=== PATIENT | male | born 1950 | race Caucasian/White ===

== ENCOUNTER 2021-05-06 06:57 | Day surgery (SDC) | payer OTHER ==
[~2021-05-06] VITALS: Ht 182.9 cm; Wt 117.0 kg
[~2021-05-06 06:57] MED LIST: APIX5TAB PO; ATOR20TA50 PO; CARV25TA55 PO; LOSA100T33 PO; MELA5TAB8 PO; MELO1TAB73 PO; TRAZ50TA2 PO; [UNRECOGNIZED DRUG - CODE] PO
[2021-05-06] MEDS ORDERED: IOHEXOL 350 MG/ML 100ML IJ ONE (08:18)
[2021-05-06] MEDS ORDERED: LIDOCAINE 2%HCL (LOCAL ANESTH.) INJ 20ML MDV ONE (08:18)
[2021-05-06] MEDS ORDERED: NITROGLYCERIN 5MG/ML 10ML VIAL IV ONE (08:40)
[2021-05-06] MEDS ORDERED: ANGIOMAX 250 MG VIAL IV ONE (08:40)
[2021-05-06] MEDS ORDERED: fentaNYL CITRATE 100 MCG/2 ML VL ONE (08:40)
[2021-05-06] MEDS ORDERED: HEPARIN SODIUM (PORCINE) 5000 UNITS/ML 1ML VIAL ONE (08:40)
[2021-05-06] MEDS ORDERED: MIDAZOLAM HCL 1MG/1ML-2 ML VIAL ONE (08:40)
[2021-05-06] MEDS ORDERED: VERAPAMIL 2.5MG/ML INJ 2ML VIAL IV ONE (08:40)
[2021-05-06] MEDS ORDERED: SODIUM CHL 0.9% 0 ML ONE (08:41)
[2021-05-06] MEDS ORDERED: IODIXANOL 320MG/ML 100ML BTL IV ONE (08:55)
[2021-05-06] MEDS ORDERED: ONDANSETRON HCL 4 MG/2 ML VIAL IV PRN (09:30)
[2021-05-06] MEDS ORDERED: ACETAMINOPHEN 500 MG TAB PO PRN (09:30)
== END 2021-05-06 11:30 | disposition home or self-care (01) ==
LOC: CATH 06:57
PROVIDERS: ATTEND Internal Medicine
DX: R94.39 Abnormal result of other cardiovascular function study (principal); I25.118 Atherosclerotic heart disease of native coronary artery with other forms of angina pectoris; I10 Essential (primary) hypertension; Z87.891 Personal history of nicotine dependence; Z79.899 Other long term (current) drug therapy; Z20.822 Contact with and (suspected) exposure to COVID-19; Z68.35 Body mass index [BMI] 35.0-35.9, adult
CPT/HCPCS: 93454; C1769; C1887; C1894; J1644; J2250; J3010; J7030; Q9967; U0003; 99152; J3490

== ENCOUNTER 2024-08-29 07:08 | Inpatient (IN) | payer OTHER ==
[~2024-08-29] VITALS: Ht 182.9 cm; Wt 106.0 kg
[~2024-08-29 07:08] MED LIST changes: +ALBU108A5 IN; +ALBU1NEB5 IN; -ATOR20TA50 PO; +BUDE1AER6 INH; +BUSP15TA60 PO; +DAPA1TAB4 PO; +FURO20TA4 PO; +IPR002IS HHN; +LOSA-535 PO; -LOSA100T33 PO; -MELA5TAB8 PO; -MELO1TAB73 PO; +POTA-36 PO; +TRAZ-184 PO; -TRAZ50TA2 PO; -[UNRECOGNIZED DRUG - CODE] PO
[2024-08-29] MEDS: CEFEPIME 1GM/ 50ML 50 ML IV ONE (08:00)
[2024-08-29] MEDS: ACETAMINOPHEN IV 1000 MG/100ML (10MG/ML) IV ONE (08:00)
[2024-08-29] MEDS: PREGABALIN CAPSULE 75 MG CAP PO ONE (08:00)
[2024-08-29] MEDS: CELECOXIB 100 MG CAP PO ONE (08:00)
[2024-08-29] MEDS ORDERED: NITROGLYCERIN 0.4 MG SL TAB SL PRN (09:15)
[2024-08-29] MEDS ORDERED: MORPHINE SULFATE INJ 2 MG/ml SYRG IV PRN (09:15)
[2024-08-29] MEDS ORDERED: MORPHINE SULF PF 5 MG/10 ML VIAL ONE (09:19)
[2024-08-29] MEDS ORDERED: KETOROLAC TROMETH 30 MG/ML 1ML VIAL ONE (09:19)
[2024-08-29] MEDS: EPINEPHrine HCL 1 MG/1 ML AMP ONE (09:36)
[2024-08-29] MEDS: VANCOMYCIN HCL 1000 MG VL ONE (09:36)
[2024-08-29] MEDS: BUPIVACAINE 0.25% INJ 50ML VIAL ONE (09:36)
[2024-08-29] MEDS: FUROSEMIDE 20 MG/2 ML VIAL ONE (09:37)
[2024-08-29] MEDS ORDERED: PATIENTS OWN MEDICATION (Buspirone Hcl 30 MG) PO SCH (10:00)
[2024-08-29] MEDS ORDERED: ENOXAPARIN SOD 100 MG/1 ML SYRINGE SC SCH (10:00)
[2024-08-29] MEDS ORDERED: PATIENTS OWN MEDICATION (Carvedilol 1 TAB) PO SCH (10:00)
[2024-08-29] MEDS ORDERED: PATIENTS OWN MEDICATION (Potassium Chloride (Potassium Chloride Cr) 20 MEQ) PO SCH (10:00)
[2024-08-29] MEDS ORDERED: PATIENTS OWN MEDICATION (Losartan Potassium 100 MG) PO SCH (10:00)
--- NOTE | 2024-08-29 12:07 | DVHINCON2 ---
Date of service: Aug 29, 2024 History of Present Illness 74 yo sick office pt of mine hx of NICM with EF 35-40% (between 35 and 45 on recent imaging), mod severe MR, TR, pulm htn, chronic afib on doac here for nathalie ctive shoulder surgery. surgery cancelled / to afib rvr and sob. Past Medical History reviewed Family History: Cardiovascular disease G8 MOTHER G8 FATHER Allergies: Coded Allergies: NO KNOWN ALLERGIES (Unverified , 05/03/21) Home Meds Active Scripts Ipratropium [place] (Ipratropium [place]) 0.02 % [place], 0.5 % HHN Q6HP PRN for 60 Days, #1200 ML Prov:JUAN RODRIGUEZ MD 02/08/24 Albuterol Sulfate (Albuterol Sulfate (5 mg/ml) 0.5%) 1 Neb Neb, 1 NEB IN Q6HP PRN for 60 Days, #1200 INH Prov:JUAN RODRIGUEZ MD 02/08/24 Reported Medications Potassium Chloride (POTASSIUM CHLORIDE CR) 10 Meq Tb, 20 MEQ PO DAILY, TAB 02/05/24 Trazodone HCl (Trazodone Hydrocloride) 100 Mg Tab, 200 MG PO HS 02/04/24 Buspirone Hcl (Buspirone Hcl) 15 Mg Tab, 30 MG PO DAILY for 30 Days 02/04/24 Losartan Potassium (Losartan Potassium) 100 Mg Tab, 100 MG PO DAILY for 30 Days, MG 02/04/24 Spqscvtxwq-Mzerkpychfmdej-Muqg (Breztri Aerosphere 160-9-4.8 Mcg/Act) 1 Aer Aer, 2 PUFF INH BID 01/12/24 Furosemide (Furosemide) 20 Mg Tab, 1 TAB PO QAM 01/12/24 Carvedilol (Carvedilol) 25 Mg Tab, 1 TAB PO Q12HR for HYPERTENSION 05/03/21 Apixaban Base (ELIQUIS) 5 Mg Tab, 5 MG PO BID for ATRIAL FIB. 05/03/21 Current Medications Current Medications Medications (Trade) Dose Ordered Sig/Anai Route PRN Reason Start Time Stop Time Status Last Admin Nitroglycerin (Ntrostat Sublingual) 0.4 mg Q5MINP PRN SL FOR CHEST PAIN 08/29/24 09:15 Morphine Sulfate 2 mg Q30M PRN IV FOR CHEST PAIN 08/29/24 09:15 Enoxaparin Sodium (Lovenox) 100 mg Q12HR SC 08/29/24 10:00 Furosemide (Lasix Tablet) 20 mg QAM PO 08/30/24 07:00 08/29/24 09:26 DC Patient Own Medication 30 mg DAILY PO 08/29/24 10:00 UNV Patient Own Medication 1 tab Q12HR PO 08/29/24 10:00 UNV Patient Own Medication 100 mg DAILY PO 08/29/24 10:00 UNV Patient Own Medication 20 meq DAILY PO 08/29/24 10:00 UNV Patient Own Medication 200 mg HS PO 08/29/24 22:00 UNV Furosemide (Lasix Injection) 40 mg BIDD IV 08/29/24 18:00 Buspirone HCl (Buspar Tablet) 30 mg DAILY PO 08/30/24 10:00 Losartan Potassium (Cozaar Tablet) 100 mg DAILY PO 08/30/24 10:00 Potassium Chloride (Klor-Con Tablet) 20 meq DAILY PO 08/30/24 10:00 Trazodone HCl (Desyrel) 200 mg HS PO 08/29/24 22:00 Carvedilol (Coreg Tablet) 25 mg BID PO 08/29/24 22:00 Review of Systems 10 pt ros otherwise negative Vital Signs Vital Signs Date Time Temp Pulse Resp B/P (MAP) Pulse Ox O2 Delivery O2 Flow Rate FiO2 08/29/24 09:37 168/128 08/29/24 08:05 98.5 130 22 96 98.5 Physical Exam nad YOLI EOMI s1 s2 irregular diffuse rhonchi abd soft nt/nd trivail edema Assessment acute on chronic systolic and diastolic HF NYHA class III ckd afib rvr pulm edema chronic pulm htn preop ortho surgery Plan/Recommendation iv lasix check ecg iv digoxin today po amiodarone diurese patient negativef [facility] 2023 once more stable hemodynamically plan for ortho surgery check bnp Plan discussed with: Patient TARAN GREEN MD Aug 29, 2024 12:07
[2024-08-29] MEDS: DIGOXIN (250MCG/ML) 2 ML AMPULE IV ONE (12:15)
[2024-08-29] MEDS: AMIODARONE HCL 200 MG TAB PO SCH (12:15)
--- NOTE | 2024-08-29 14:38 | DVHHP2 ---
History of Present Illness Reason for Visit: shoulder surgery History of Present Illness Disease 74-year-old gentleman with coronary artery disease with AICD came to the hospital for elective shoulder surgery. Operatively in the operating room patient noted to be in atrial fibrillation with rapid ventricular response. Therefore surgery was canceled and is being admitted to the hospital for cardiac evaluation and further management. At present patient denies any chest pain or shortness of breath. Denies any palpitations. Other review of systems reviewed normal. Past Medical History Cardiomyopathy with ejection fraction about 35%. Coronary artery disease cardiovascular disease. Chronic atrial fibrillation. Pulmonary hypertension Past Surgical History Pacemaker/AICD placement Family History: CAD, Hyperlipidemia, Hypertension Smoke: No ALCOHOL: rare Lives: with Family Review of Systems Review of Systems No complaints chest pain shortness of breath or palpitations. No fevers chills or sweats. Patient says he is constipated. Other review of systems reviewed normal. Allergies: Coded Allergies: NO KNOWN ALLERGIES (Unverified , 05/03/21) Medications Current Medications Medications Dose Ordered Sig/Anai Route Start Time Stop Time Status Last Admin Dose Admin Nitroglycerin 0.4 mg Q5MINP PRN SL 08/29/24 09:15 Morphine Sulfate 2 mg Q30M PRN IV 08/29/24 09:15 Enoxaparin Sodium 100 mg Q12HR SC 08/29/24 10:00 Patient Own Medication 30 mg DAILY PO 08/29/24 10:00 UNV Patient Own Medication 1 tab Q12HR PO 08/29/24 10:00 UNV Patient Own Medication 100 mg DAILY PO 08/29/24 10:00 UNV Patient Own Medication 20 meq DAILY PO 08/29/24 10:00 UNV Patient Own Medication 200 mg HS PO 08/29/24 22:00 UNV Buspirone HCl 30 mg DAILY PO 08/30/24 10:00 Losartan Potassium 100 mg DAILY PO 08/30/24 10:00 Potassium Chloride 20 meq DAILY PO 08/30/24 10:00 Trazodone HCl 200 mg HS PO 08/29/24 22:00 Carvedilol 25 mg BID PO 08/29/24 22:00 Furosemide 40 mg BIDD IV 08/29/24 18:00 Amiodarone HCl 400 mg Q12HR PO 08/29/24 12:15 Exam Vital Signs Vital Signs Date Time Temp Pulse Resp B/P (MAP) Pulse Ox O2 Delivery O2 Flow Rate FiO2 08/29/24 09:37 168/128 08/29/24 08:05 98.5 130 22 96 98.5 Exam He is sitting at the edge of the bed and atovaquone x3. No complaints. HEENT neck supple no rigidity was equal round react light. Heart regular rate and rhythm S1-S2 no audible murmurs. Lungs fair air movement throughout the lung zones. Chest equal expansion. Abdomen is obese soft nontender positive bowel sounds. Extremities no edema positive distal pulses. Assessment/Plan Assessment/Plan Who will admit him to telemetry floor. All resume his Coreg and amiodarone for heart rate control. We will continue to hold anticoagulation for anticipated shoulder surgery however risks of embolic stroke he has discussed with the patient well off the anticoagulation. We will have cardiac consultation with his tool designer apprentice. Otherwise resume rest of his home medications. I will order CT of the abdomen and pelvis given his abdominal bloating distention and constipation. Otherwise continue in his nasal breathing treatment. Clear liquid diet. Further clinical management for clinical course and recomme ndations from the consultants. Discussed with the nurse and the patient regarding care plan. Plan discussed with: Patient, Other My Orders Orders - KENNETH REES MD Procedure Category Date Status Time Admit ADMIT 08/29/24 Transmitted 09:09 Oxygen By Nasal RT 08/29/24 Transmitted Cannula 09:09 Nitroglycerin [facility] 08/29/24 In Process Sublingual (Ntrostat 09:15 Morphine Sulfate [facility] 08/29/24 In Process Injection 09:15 Stat Ekg For Chest [facility] 08/29/24 In Process Pain 09:09 Notify Of Changes [facility] 08/29/24 In Process From Base 09:09 Infantry Officer For [facility] 08/29/24 In Process 24 Hours 09:09 Emergency Dysrhythmia [facility] 08/29/24 In Process Protocol 09:09 Rhythm Strips Once [facility] 08/29/24 In Process Every Shift 09:09 * Cardiology Consult CONS 08/29/24 Transmitted 09:09 Enoxaparin Sodium PH[facility] 08/29/24 In Process (Lovenox) 10:00 Cardiac DIET 08/29/24 Transmitted Diet-2gna,Lofat,Lochol Lunch Buspirone Hcl Tablet PHA 08/30/24 In Process (Buspar Tablet) 10:00 Losartan Tablet PHA 08/30/24 In Process (Cozaar Tablet) 10:00 Potassium Er Tablet PHA 08/30/24 In Process (Klor-Con Tablet) 10:00 Trazodone Hcl PHA 08/29/24 In Process (Desyrel) 22:00 Carvedilol Tablet PHA 08/29/24 In Process (Coreg Tablet) 22:00 Problem List: (1) Atrial fibrillation (2) Generalized weakness (3) Acute on chronic diastolic heart failure KENNETH REES MD Aug 29, 2024 14:38
[2024-08-29 15:37] LABS: Basophils # (auto) 0 10 ^3/uL (0-0.2); Basophils % (auto) 0.7 % (0.0-2.0); Eosinophils # (auto) 0.1 10 ^3/uL (0-0.8); Hematocrit 47.2 % (41.0-53.0); Lymphocytes # (auto) 1.3 10 ^3/uL (0.4-5.4); Lymphocytes % (auto) 18.9 % (10.0-50.0); Mean Corpuscular Hemoglobin 31.8 pg (28.0-32.0); Mean Corpuscular Hgb Conc. 33.9 g/dL (32.0-36.0); Mean Corpuscular Volume 93.7 fL (80.0-100.0); Monocytes # (auto) 0.7 10 ^3/uL (0-1.3); Monocytes % (auto) 11.2 % (0.0-12.0); Neutrophils # (auto) 4.5 10 ^3/uL (1.6-8.6); Neutrophils % (auto) 67.2 % (37.0-80.0); Platelet Count (auto) 143 10^3/uL (140-450); Red Blood Cells 5.04 10^6/uL (4.5-5.90); Red Cell Distribution Width 16.1 % (11.8-14.3); White Blood Cell 6.7 10^3/uL (4.4-10.8)
[2024-08-29 16:04] LABS: Alanine Aminotransferase 20 U/L (7-40); Alkaline Phosphatase 116 U/L (46-116); Anion Gap 3 (5-15); Aspartate Aminotransferase 17 U/L (13-40); BUN/Creatinine Ratio 13.3 (10.0-20.0); Blood Urea Nitrogen 11 mg/dL (9-23); Calcium 9.8 mg/dL (8.7-10.4); Carbon Dioxide 30 mmol/L (20-31); Chloride 108 mmol/L (98-107); Glucose 103 mg/dL (74-106); Potassium 4.1 mmol/L (3.5-5.1); Sodium 141 mmol/L (136-145)
[2024-08-29 16:05] LABS: Bilirubin, Total 1.3 mg/dL (0.2-1.0); Total Protein 6.4 g/dL (5.7-8.2)
[2024-08-29 16:19] LABS: INR 1.13 (0.9-1.15); Partial Thromboplastin Time 28.5 SEC (24.5-34.5); Prothrombin Time 11.9 sec (9.3-11.8)
[2024-08-29] MEDS ORDERED: TADA5TAB16 PO (16:22)
[2024-08-29] MEDS: FUROSEMIDE 40 MG/4 ML VIAL IV SCH (16:58)
[2024-08-29] MEDS: CARVEDILOL 12.5 MG TAB PO SCH (16:58)
[2024-08-29 17:08] VITALS: BP 167/107; PULSE 111; RESP 15; TEMP 97.9; O2SAT 94
[2024-08-29] MEDS ORDERED: FUROSEMIDE 40 MG/4 ML VIAL IV SCH (18:00)
[2024-08-29] MEDS: MAGNESIUM SULFATE 1GM/100ML 100 ML IV SCH (18:02)
[2024-08-29 20:00] VITALS: PULSE 104; PULSE 92; RESP 20; O2SAT 94
[2024-08-29] MEDS: LORazepam 2MG/ML-1ML VIAL IV PRN (20:40)
[2024-08-29 21:00] VITALS: BP 138/89; PULSE 92; RESP 20; TEMP 98; O2SAT 94
[2024-08-29] MEDS ORDERED: TRAZODONE HCL 200 MG PO SCH (22:00)
[2024-08-29] MEDS: traZODone HCL 50 MG TAB PO SCH (22:25)
[2024-08-30] VITALS (7 sets, daily range): BP systolic 122–162; BP diastolic 65–104; PULSE 65–87; RESP 18–20; TEMP 97.5–98.6; O2SAT 93–99
[2024-08-30] MEDS: hydrALAZINE HCL 20 MG/ML VL IV PRN (05:52)
[2024-08-30 06:05] LABS: Chloride 108 mmol/L (98-107); Potassium 3.8 mmol/L (3.5-5.1); Sodium 140 mmol/L (136-145)
[2024-08-30 06:06] LABS: Anion Gap 4 (5-15); Carbon Dioxide 28 mmol/L (20-31)
[2024-08-30 06:07] LABS: Calcium 9.4 mg/dL (8.7-10.4)
[2024-08-30 06:11] LABS: Blood Urea Nitrogen 9 mg/dL (9-23); Glucose 94 mg/dL (74-106)
[2024-08-30] MEDS ORDERED: FUROSEMIDE 20 MG TAB PO SCH (07:00)
--- NOTE | 2024-08-30 07:49 | DVHPN2 ---
Progress Note Date Seen: Aug 30, 2024 Medical Necessity Reason Pt with a Central, PICC or Fol: No Subjective Patient reports: Feels worse (patient reports he has abdominal discomfort and is now feeling very anxious and knows something is not right) Objective vital signs Vital Sign Date Time Temp Pulse Resp B/P (MAP) Pulse Ox O2 Delivery O2 Flow Rate FiO2 08/30/24 05:52 153/104 08/30/24 05:00 97.5 84 20 93 97.5 08/29/24 20:00 Room Air* 0 21 Total Intake and Output 08/29/24 08/29/24 08/30/24 15:00 23:00 07:00 Intake Total 0 ml 600 ml 640 ml Output Total 2025 ml Balance -2025 ml 600 ml 640 ml medications Current Medications Medications Dose Ordered Sig/Anai Route Start Time Stop Time Status Last Admin Dose Admin Nitroglycerin 0.4 mg Q5MINP PRN SL 08/29/24 09:15 Morphine Sulfate 2 mg Q30M PRN IV 08/29/24 09:15 Patient Own Medication 30 mg DAILY PO 08/29/24 10:00 UNV Patient Own Medication 1 tab Q12HR PO 08/29/24 10:00 UNV Patient Own Medication 100 mg DAILY PO 08/29/24 10:00 UNV Patient Own Medication 20 meq DAILY PO 08/29/24 10:00 UNV Patient Own Medication 200 mg HS PO 08/29/24 22:00 UNV Buspirone HCl 30 mg DAILY PO 08/30/24 10:00 Losartan Potassium 100 mg DAILY PO 08/30/24 10:00 Potassium Chloride 20 meq DAILY PO 08/30/24 10:00 Trazodone HCl 200 mg HS PO 08/29/24 22:00 08/29/24 22:25 200 MG Carvedilol 25 mg BID PO 08/29/24 22:00 08/29/24 16:58 25 MG Furosemide 40 mg BIDD IV 08/29/24 18:00 08/30/24 05:52 40 MG Amiodarone HCl 400 mg Q12HR PO 08/29/24 12:15 08/29/24 22:25 400 MG Hydralazine HCl 10 mg Q6HP PRN IV 08/29/24 15:15 08/30/24 05:52 10 MG Lorazepam 0.5 mg Q8HP PRN IV 08/29/24 17:30 08/30/24 07:32 0.5 MG Examination: GENERAL:Normal laboratory and microbiology Laboratory Tests 08/30/24 04:55 08/29/24 15:17 Test 08/30/24 04:55 Range/Units Serum Glucose 94 74-106 mg/dL Problem List/Assessment/Plan Problem List/Assessment/Plan 74 year old male who was scheduled for RV TSA with Dr. Faulkner that was cancelled due to cardiac symptoms 1. Pain control 2. WBAT, no physical restrictions 3. Discussion held with the patient at the bedside that once he is medically stable he can contact our office and we can begin the rescheduling process likely next week pending overall status 4. Continue with medical workup 5. Clear for discharge from orthopedic standpoint once patient is medically optimized and stable for discharge Plan discussed with: Patient Date of Service: Aug 30, 2024 Billing Provider: ROBLES FAULKNER MD Common Visit Codes: NOT BILLABLE FABIEN DHALIWAL NP Aug 30, 2024 07:49
[2024-08-30] MEDS: LOSARTAN POTASSIUM 50 MG TAB PO SCH (08:37)
[2024-08-30] MEDS: GASTROGRAFIN 30 ML SOL ONE (09:59)
--- NOTE | 2024-08-30 11:46 | DVH ---
Exam: CT CT ABD PELVIS W CON-ORAL IV History: abdominal pain/discomfort Comparison Study: TECHNIQUE: A digital lighthouse keeper image was obtained. During the uneventful, oral and intravenous administra tion of contrast material, multislice data acquisition was obtained through the abdomen and pelvis. T he data set was subsequently reconstructed into axial images. Images were reviewed on a work station using a combination of axial and multiplanar using a variety of window levels and settings. 100 cc of Omnipaque 300 contrast was injected intravenously. All CT scans at this medical facility are performed using dose modulation techniques as appropriate t o a performed exam including the following:Automated exposure control was utilized; adjustment of the MA and/or KV according to patient size; and use of iterative reconstruction technique. Radiation Dose Information: CT Dose: CTDI volume is 21 mGy. Dose-length product is 1185 mGy*cm Comparison: None FINDINGS: The bilateral adrenal glands appear thickened, [id number] likely related to h yperplasia. Theliver, gallbladder, pancreas, kidneys, and spleen appear within normal limits. There is no evidence of abdominal lymphadenopathy. There are edematous changes in the mesentery with small amount of ascites. There is no free air. The stomach grossly appears unremarkable. The small and large bowel loops demonstrate normal caliber. There are diverticula in the distal colon without evidence acute diverticulitis. There are calcified atherosclerotic changes in the abdominal aorta. The IVC appears within normal allen its. Prostate gland is enlarged. The bladder grossly appears within normal limits for the degree of disten tion. There is no evidence of a pelvic mass or lymphadenopathy. There is no free fluid collection. T here is a left inguinal hernia containing intra-abdominal fat and small amount of fluid. There is cardiomegaly with small pericardial effusion. Lung bases are clear. There is no acute osseous abnormality. There is scoliotic curvature of the thoracolumbar spine with m ultilevel spondylosis. IMPRESSION: 1. There is no acute process in the abdomen and pelvis.. 2. Cardiomegaly with small pericardial effusion. 3. Distal colon diverticulosis. 4. The bilateral adrenal glands appear thickened likely related to hyperplasia. 5. There are edematous changes in the mesentery with small amount of ascites. 6. Left inguinal hernia. HS:Y
[2024-08-30] MEDS: busPIRone HCL 10 MG TAB PO SCH (12:01)
[2024-08-30] MEDS: POTASSIUM CHL 20 Meq TABLET PO SCH (12:01)
[2024-08-30] MEDS: IOHEXOL 300 MG/ML 100ML BOTTLE IJ ONE (12:11)
--- NOTE | 2024-08-30 12:19 | DVHPN2 ---
Progress Note Date Seen: Aug 30, 2024 Medical Necessity Reason Pt with a Central, PICC or Fol: No Subjective Patient reports: Feels better Other Systems: rate controlled having runs of tachycardia diuresed well Objective vital signs Vital Sign Date Time Temp Pulse Resp B/P (MAP) Pulse Ox O2 Delivery O2 Flow Rate FiO2 08/30/24 08:38 90 175/115 08/30/24 08:36 98.0 20 99 98.0 08/29/24 20:00 Room Air* 0 21 Total Intake and Output 08/29/24 08/29/24 08/30/24 15:00 23:00 07:00 Intake Total 0 ml 600 ml 640 ml Output Total 2025 ml Balance -2025 ml 600 ml 640 ml medications Current Medications Medications Dose Ordered Sig/Anai Route Start Time Stop Time Status Last Admin Dose Admin Nitroglycerin 0.4 mg Q5MINP PRN SL 08/29/24 09:15 Morphine Sulfate 2 mg Q30M PRN IV 08/29/24 09:15 Patient Own Medication 30 mg DAILY PO 08/29/24 10:00 UNV Patient Own Medication 1 tab Q12HR PO 08/29/24 10:00 UNV Patient Own Medication 100 mg DAILY PO 08/29/24 10:00 UNV Patient Own Medication 20 meq DAILY PO 08/29/24 10:00 UNV Patient Own Medication 200 mg HS PO 08/29/24 22:00 UNV Buspirone HCl 30 mg DAILY PO 08/30/24 10:00 08/30/24 12:01 30 MG Losartan Potassium 100 mg DAILY PO 08/30/24 10:00 08/30/24 08:37 100 MG Potassium Chloride 20 meq DAILY PO 08/30/24 10:00 08/30/24 12:01 20 MEQ Trazodone HCl 200 mg HS PO 08/29/24 22:00 08/29/24 22:25 200 MG Carvedilol 25 mg BID PO 08/29/24 22:00 08/30/24 08:38 25 MG Furosemide 40 mg BIDD IV 08/29/24 18:00 08/30/24 05:52 40 MG Amiodarone HCl 400 mg Q12HR PO 08/29/24 12:15 08/30/24 08:38 400 MG Hydralazine HCl 10 mg Q6HP PRN IV 08/29/24 15:15 08/30/24 05:52 10 MG Lorazepam 0.5 mg Q8HP PRN IV 08/29/24 17:30 08/30/24 07:32 0.5 MG Examination: GENERAL:Abnormal, HEENT:Abnormal, LUNGS:Abnormal, CVS:Abnormal, ABDOMEN:Abnormal laboratory and microbiology Laboratory Tests 08/30/24 04:55 08/29/24 15:17 Test 08/30/24 04:55 Range/Units Serum Glucose 94 74-106 mg/dL Problem List/Assessment/Plan Problem List/Assessment/Plan s/p PPM severe chf with low EF mitral regurg acute on chronic systolic HF NYHA III iv lasix bid add aldactone device check/ interroage cont po amio resume doac if no ortho surgery this week Plan discussed with: Patient Date of Service: Aug 30, 2024 Billing Provider: TARAN GREEN MD Common Visit Codes: NOT BILLABLE TARAN GREEN MD Aug 30, 2024 12:19
--- NOTE | 2024-08-30 13:08 | DVHPN2 ---
Progress Note - Dictate Date Seen: Aug 30, 2024 Medical Necessity Reason Pt with a Central, PICC or Fol: No Subjective Medically stable to. Wants to eat if no surgery is being done. Patient reportedly having tachycardia on telemetry for a nurse. Evaluated by Cardiology yesterday recommend current management and pacemaker interrogation. vital signs Vital Sign Date Time Temp Pulse Resp B/P (MAP) Pulse Ox O2 Delivery O2 Flow Rate FiO2 08/30/24 09:38 94 125/71 08/30/24 08:36 98.0 20 99 98.0 08/29/24 20:00 Room Air* 0 21 Total Intake and Output 08/29/24 08/29/24 08/30/24 15:00 23:00 07:00 Intake Total 0 ml 600 ml 640 ml Output Total 2025 ml Balance -2025 ml 600 ml 640 ml medications Current Medications Medications Dose Ordered Sig/Anai Route Start Time Stop Time Status Last Admin Dose Admin Nitroglycerin 0.4 mg Q5MINP PRN SL 08/29/24 09:15 Morphine Sulfate 2 mg Q30M PRN IV 08/29/24 09:15 Patient Own Medication 30 mg DAILY PO 08/29/24 10:00 UNV Patient Own Medication 1 tab Q12HR PO 08/29/24 10:00 UNV Patient Own Medication 100 mg DAILY PO 08/29/24 10:00 UNV Patient Own Medication 20 meq DAILY PO 08/29/24 10:00 UNV Patient Own Medication 200 mg HS PO 08/29/24 22:00 UNV Buspirone HCl 30 mg DAILY PO 08/30/24 10:00 08/30/24 12:01 30 MG Losartan Potassium 100 mg DAILY PO 08/30/24 10:00 08/30/24 08:37 100 MG Potassium Chloride 20 meq DAILY PO 08/30/24 10:00 08/30/24 12:01 20 MEQ Trazodone HCl 200 mg HS PO 08/29/24 22:00 08/29/24 22:25 200 MG Carvedilol 25 mg BID PO 08/29/24 22:00 08/30/24 08:38 25 MG Furosemide 40 mg BIDD IV 08/29/24 18:00 08/30/24 05:52 40 MG Amiodarone HCl 400 mg Q12HR PO 08/29/24 12:15 08/30/24 08:38 400 MG Hydralazine HCl 10 mg Q6HP PRN IV 08/29/24 15:15 08/30/24 05:52 10 MG Lorazepam 0.5 mg Q8HP PRN IV 08/29/24 17:30 08/30/24 07:32 0.5 MG objective Heart regular rate and rhythm S1-S2 no audible murmurs. Lungs fair air movement without any wheezes. Abdomen is obese soft positive bowel sounds and nontender. Extremities no edema. laboratory and microbiology Laboratory Tests 08/30/24 04:55 08/29/24 15:17 Test 08/30/24 04:55 Range/Units Serum Glucose 94 74-106 mg/dL Assessment/Plan He is clinically stable. She did abdomen pelvis with contrast does not show any acute pathology. Left inguinal hernia noted. No obvious stool burden. We will continue present management and laxatives as needed. Pacemaker interrogation. Otherwise the further clinical management for intercourse and the recommendations from the consultants. Disc with the patient/flexographic press helper as well as nurse regarding care plan. Problems(with codes): (1) Atrial fibrillation (2) Generalized weakness (3) Acute on chronic diastolic heart failure Plan discussed with: KENNETH Neville MD Aug 30, 2024 13:08
[2024-08-30] MEDS: SPIRONOLACTONE 25 MG TAB PO ONE (14:25)
[2024-08-30] MEDS: DIGOXIN (250MCG/ML) 2 ML AMPULE IV ONE (14:25)
[2024-08-30 19:26] LABS: Potassium 4.1 mmol/L (3.5-5.1)
[2024-08-30 19:32] LABS: Magnesium 2.4 mg/dL (1.6-2.6)
[2024-08-30] MEDS: ENOXAPARIN SOD 100 MG/1 ML SYRINGE SC SCH (21:39)
[2024-08-31] MEDS ORDERED: MORPHINE SULFATE INJ 2 MG/ml SYRG IV PRN (01:00)
[2024-08-31 01:04] VITALS: BP 141/90; PULSE 85; RESP 19; TEMP 98.2; O2SAT 93
[2024-08-31] MEDS: HYDROcodone-ACET 5/325MG TAB PO PRN (01:15)
[2024-08-31 05:00] VITALS: BP 123/53; PULSE 74; RESP 19; TEMP 98; O2SAT 92
[2024-08-31 07:08] LABS: Basophils # (auto) 0 10 ^3/uL (0-0.2); Basophils % (auto) 0.4 % (0.0-2.0); Eosinophils # (auto) 0.1 10 ^3/uL (0-0.8); Eosinophils % (auto) 1.4 % (0.0-7.0); Hematocrit 50.7 % (41.0-53.0); Hemoglobin 16.8 g/dL (13.5-17.5); Lymphocytes # (auto) 1.1 10 ^3/uL (0.4-5.4); Lymphocytes % (auto) 13.7 % (10.0-50.0); Mean Corpuscular Hemoglobin 31.2 pg (28.0-32.0); Mean Corpuscular Hgb Conc. 33.2 g/dL (32.0-36.0); Mean Corpuscular Volume 94.1 fL (80.0-100.0); Monocytes # (auto) 0.9 10 ^3/uL (0-1.3); Monocytes % (auto) 10.3 % (0.0-12.0); Neutrophils # (auto) 6.2 10 ^3/uL (1.6-8.6); Neutrophils % (auto) 74.2 % (37.0-80.0); Nucleated Red Blood Cells % 0.1 %; Platelet Count (auto) 152 10^3/uL (140-450); Red Blood Cells 5.39 10^6/uL (4.5-5.90); Red Cell Distribution Width 15.6 % (11.8-14.3); White Blood Cell 8.4 10^3/uL (4.4-10.8)
[2024-08-31 07:12] LABS: Anion Gap 5 (5-15); Carbon Dioxide 30 mmol/L (20-31); Chloride 105 mmol/L (98-107); Potassium 3.9 mmol/L (3.5-5.1); Sodium 140 mmol/L (136-145)
[2024-08-31 07:18] LABS: Blood Urea Nitrogen 12 mg/dL (9-23); Glucose 104 mg/dL (74-106)
[2024-08-31 08:00] VITALS: PULSE 85
[2024-08-31 08:05] VITALS: BP 134/89; PULSE 73; RESP 16; TEMP 97.8; O2SAT 93
--- NOTE | 2024-08-31 11:52 | CONS ---
Pharmacy Clinical Information: From Concurrent Heart Failure CQM, Javad Worthington is a 74 year old male with PMH of chronic Afib, NICM, CHF NYHA III (EF 35 - 40%), moderate to severe MR, TR, and pulmonary hypertension. His home medications for heart failure include dapagliflozin, losartan, furosemide, and carvedilol. His inpatient medications include carvedilol, furosemide, losartan, and a one time dose of spironolactone. If elective shoulder surgery is cancelled, recommend to initiate SGLT2i (dapagliflozin) when patient becomes hemodynamically stable Recommend to initiate MRA (spironolactone) since patient is symptomatic with eGFR > 30 and K < 5 CHANDRA SANTANA PHARMACIST Aug 31, 2024 11:52
[2024-08-31 12:01] VITALS: BP 135/83; PULSE 16; RESP 16; TEMP 98; O2SAT 95
--- NOTE | 2024-09-06 09:55 | DVHDS2 ---
Discharge Summary Date of Admission Aug 29, 2024 at 09:09 Date of Discharge: Aug 31, 2024 Labs/Diagnostic Data: Laboratory Results Test 08/31/24 06:00 08/30/24 18:48 08/29/24 15:17 White Blood Count 8.4 10^3/uL (4.4-10.8) Red Blood Count 5.39 10^6/uL (4.5-5.90) Hemoglobin 16.8 g/dL (13.5-17.5) Hematocrit 50.7 % (41.0-53.0) Mean Corpuscular Volume 94.1 fL (80.0-100.0) Mean Corpuscular Hemoglobin 31.2 pg (28.0-32.0) Mean Corpuscular Hemoglobin Concent 33.2 g/dL (32.0-36.0) Red Cell Distribution Width 15.6 % (11.8-14.3) Platelet Count 152 10^3/uL (140-450) Mean Platelet Volume 9.1 fL (6.9-10.8) Neutrophils (%) (Auto) 74.2 % (37.0-80.0) Lymphocytes (%) (Auto) 13.7 % (10.0-50.0) Monocytes (%) (Auto) 10.3 % (0.0-12.0) Eosinophils (%) (Auto) 1.4 % (0.0-7.0) Basophils (%) (Auto) 0.4 % (0.0-2.0) Neutrophils # (Auto) 6.2 10 ^3/uL (1.6-8.6) Lymphocytes # (Auto) 1.1 10 ^3/uL (0.4-5.4) Monocytes # (Auto) 0.9 10 ^3/uL (0-1.3) Eosinophils # (Auto) 0.1 10 ^3/uL (0-0.8) Basophils # (Auto) 0 10 ^3/uL (0-0.2) Nucleated Red Blood Cells 0.1 % Sodium Level 140 mmol/L (136-145) Potassium Level 3.9 mmol/L (3.5-5.1) Chloride Level 105 mmol/L (98-107) Carbon Dioxide Level 30 mmol/L (20-31) Anion Gap 5 (5-15) Blood Urea Nitrogen 12 mg/dL (9-23) Creatinine 0.80 mg/dL (0.700-1.30) Glomerular Filtration Rate Calc 93 mL/min (>90) BUN/Creatinine Ratio 15.0 (10.0-20.0) Serum Glucose 104 mg/dL (74-106) Calcium Level 10.0 mg/dL (8.7-10.4) B-Type Natriuretic Peptide 854.89 pg/mL (0-100) Magnesium Level 2.4 mg/dL (1.6-2.6) Prothrombin Time 11.9 sec (9.3-11.8) Prothrombin Time INR 1.13 (0.9-1.15) Activated Partial Thromboplast Time 28.5 SEC (24.5-34.5) Total Bilirubin 1.3 mg/dL (0.2-1.0) Aspartate Amino Transferase (AST) 17 U/L (13-40) Alanine Aminotransferase (ALT) 20 U/L (7-40) Alkaline Phosphatase 116 U/L (46-116) Total Protein 6.4 g/dL (5.7-8.2) Albumin 4.0 g/dL (3.2-4.8) Other Laboratory Tests 08/31/24 06:00 Brief Hx & Hospital Course: Disease 74-year-old gentleman with coronary artery disease with AICD came to the hospital for elective shoulder surgery. Operatively in the operating room patient noted to be in atrial fibrillation with rapid ventricular response. Therefore surgery was canceled and is being admitted to the hospital for cardiac evaluation and further management. At present patient denies any chest pain or shortness of breath. Denies any palpitations. Other review of systems reviewed normal. Cardiomyopathy with ejection fraction about 35%. Coronary artery disease cardiovascular disease. Chronic atrial fibrillation. Pulmonary hypertension. He is admitted and evaluated by plumber assistant. Patient noted to be in atrial fibrillation with rapid ventricular response. Patient received amiodarone. Patient had few beats of wide complex tachycardia. His cardiac medications adjusted per recommendations from Cardiology. However while in the hospital his shoulder surgery he has canceled due to his cardiac problems. Patient feeling better heart rate is controlled and having his shoulder surgery canceled it is felt he could be safely discharged home with outpatient follow up with orthopedic surgeon to resume elective shoulder surgery as appropriate. Meantime he is advised to resume his anticoagulation for stroke prevention from AFib. Patient complains of abdominal bloating for which he had a CT of the abdomen and pelvis did not show any acute pathology. Patient is advised to keep his bowels regular and soft to minimize constipation. Patient verbalized understanding his hospital diagnosis, treatment he received, discharge medications, discharge instructions and agreed with the follow up plan of care. Consults/Reason for consult Problem List/Assessment/Plan s/p PPM severe chf with low EF mitral regurg acute on chronic systolic HF NYHA III iv lasix bid add aldactone device check/ interroage cont po amio resume doac if no ortho surgery this week Plan discussed with: Patient Date of Service: Aug 30, 2024 Billing Provider: TARAN GREEN MD Common Visit Codes: NOT BILLABLE Operations or Procedures IMPRESSION: 1. There is no acute process in the abdomen and pelvis.. 2. Cardiomegaly with small pericardial effusion. 3. Distal colon diverticulosis. 4. The bilateral adrenal glands appear thickened likely related to hyperplasia. 5. There are edematous changes in the mesentery with small amount of ascites. 6. Left inguinal hernia. HS:Y ATED BY: QUINCY BRISCOE MD DICTATED DATE/TIME: 08/30/24 1144 Condition at Discharge: Stable Final Diagnosis/Problems List Afib rvr, shoulder problems Discharge Disposition: Home Discharge Instruct/Medications Diet: Consistent carbohydrate, Cardiac 2g Na,low cholest Activity: No Restrictions, As Tolerated Follow Up/Referral: Dr.samir Fauklner next week to reschedule your shoulder surgery. Medications: To resume all home medications including Eliquis blood thinner deliver seen by Dr. Faulkner surgeon Continued Medications: Albuterol Sulfate (Albuterol Sulfate Hfa) 108 Mcg/Act Aer 1 PUFF IN Q4-6HR PRN for SHORTNESS OF BREATH for 33 Days, #8.5 Apixaban Base (Eliquis) 5 Mg Tab 5 MG PO BID for ATRIAL FIB. Fxmrqninew-Oulfmgvaupvumm-Knuk (Breztri Aerosphere 160-9-4.8 Mcg/Act) 1 Aer Aer 2 PUFF INH BID Buspirone Hcl (Buspirone Hcl) 15 Mg Tab 1 TAB PO Q8HR PRN for 90 Days, #270 Carvedilol (Carvedilol) 25 Mg Tab 1 TAB PO Q12HR for HYPERTENSION Dapagliflozin Propanediol (Farxiga) 10 Mg Tab 1 TAB PO DAILY for 30 Days, #30 Furosemide (Furosemide) 20 Mg Tab 1 TAB PO QAM Ipratropium Larslan (Ipratropium Larslan) 0.02 % Raven 0.5 % HHN Q6HP PRN for 60 Days, #1200 ML Losartan Potassium (Losartan Potassium) 100 Mg Tab 100 MG PO DAILY for 30 Days, MG Potassium Chloride (Potassium Chloride Cr) 10 Meq Tb 20 MEQ PO DAILY, TAB Tadalafil (Tadalafil) 5 Mg Tab 1 TAB PO DAILY Trazodone HCl (Trazodone Hydrocloride) 100 Mg Tab 200 MG PO HS Discharge Statement: "Patient was advised to return to the ER or call 911 if any headaches, dizziness, shortness of breath, chest pain, abdominal pain, bleeding, fevers, or worsening of medical condition. Patient was counseled about treatment plan, medications, possible side effects, patientverbalized understanding. All questions were answered to the best of my ability. This discharge took greater then 30 minutes in planning, reviewing documentation, counseling the patient, and discussing with other team members." ASSESSMENT ASSESSMENT Assessment Afib rvr, shoulder problems KENNETH REES MD Sep 06, 2024 09:55
== END 2024-08-31 16:12 | disposition home or self-care (01) | DRG 291 ==
LOC: SUR 07:08 → TELE 09:09 → TELE-CENTR 15:32
PROVIDERS: ADMIT Orthopaedic Surgery Adult Reconstructive Orthopaedic Surgery; ATTEND Orthopaedic Surgery Adult Reconstructive Orthopaedic Surgery
DX: I13.0 Hypertensive heart and chronic kidney disease with heart failure and stage 1 through stage 4 chronic kidney disease, or unspecified chronic kidney disease (principal); I50.43 Acute on chronic combined systolic (congestive) and diastolic (congestive) heart failure; I48.91 Unspecified atrial fibrillation; I27.20 Pulmonary hypertension, unspecified; I25.10 Atherosclerotic heart disease of native coronary artery without angina pectoris; K59.00 Constipation, unspecified; I34.0 Nonrheumatic mitral (valve) insufficiency; K40.90 Unilateral inguinal hernia, without obstruction or gangrene, not specified as recurrent; Z95.810 Presence of automatic (implantable) cardiac defibrillator; Z82.49 Family history of ischemic heart disease and other diseases of the circulatory system; Z79.899 Other long term (current) drug therapy; N18.1 Chronic kidney disease, stage 1
CPT/HCPCS: 36415; 74177; 80048; 80053; 83735; 83880; 84132; 85025; 85610; 85730; 86850; 86900; 86901; G0378; J0171; J1885; J3490

== ENCOUNTER 2024-09-23 09:57 | Emergency (ER) | payer OTHER ==
[~2024-09-23] VITALS: Ht 182.9 cm; Wt 101.0 kg
[~2024-09-23 09:57] MED LIST changes: -ALBU1NEB5 IN; +TADA5TAB16 PO
--- NOTE | 2024-09-23 10:31 | ECG ---
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
--- NOTE | 2024-09-23 10:32 | ED.PDOC ---
SOB-HPI HPI Comments A 74 year old male presents to the ED with a chief complaint of shortness of breath onset 2 weeks. Patient states he began experiencing bilateral ankles and feet swelling 2 weeks ago as well as shortness of breath, distended abdomen with LUQ pain. Patient is not able to sleep on LT side due to pain. His PCP recently put him on Lasix 20 mg but is not noticing an improvement. He is on 2L of O2 at home, has used his Albuterol inhaler as well as Nebulizer and notices a small improvement for a short period of time. Has a past medical history of Afib and CHF. No other symptoms or modifying factors present at this time. Chief Complaint: Shortness of Breath Time Seen by MD: 10:18 Primary Care Provider: UNKNOWN Reviewed notes: Medications, Allergies Information Source: Patient Mode of Arrival: Ambulatory Severity: Moderate Timing: Weeks Duration: Since onset History of: CHF Prehospital treatment: None Past Medical History PAST MEDICAL HISTORY: AFIB, CHF Surgical History: Pacemaker Family History Family History: Unknown Social History Smoker: Quit Greater Than 1 Year Alcohol: Denies ETOH Use Drugs: Denies Drug Use Lives In: Home Constitutional: denies: chills, diaphoresis, fatigue, fever, malaise, sweats, weakness, others EENTM: denies: blurred vision, double vision, ear bleeding, ear discharge, ear drainage, ear pain, ear ringing, eye pain, eye redness, hearing loss, mouth pain, mouth swelling, nasal discharge, nose bleeding, nose congestion, nose pain, photophobia, tearing, throat pain, throat swelling, voice changes, others Respiratory: reports: shortness of breath; denies: cough, hemoptysis, orthopnea, SOB at rest, SOB with excertion, stridor, wheezing, others Cardiovascular: denies: chest pain, dizzy spells, diaphoresis, Dyspnea on exertion, edema, irregular heart beat, left arm pain, lightheadedness, palpit ations, PND, syncope, others Gastrointestinal: reports: abdomen distended; denies: abdominal pain, blood streaked bowels, constipated, diarrhea, dysphagia, difficulty swallowing, hematemesis, melena, nausea, poor appetite, poor fluid intake, rectal bleeding, rectal pain, vomiting, others Genitourinary: denies: burning, dysuria, flank pain, frequency, hematuria, incontinence, penile discharge, penile sore, pain, testicle pain, testicle swelling, urgency, others Neurological: denies: dizziness, fainting, headache, left sided numbness, left sided weakness, numbness, paresthesia, pre-existing deficit, right sided numbness, right sided weakness, seizure, speech problems, tingling, tremors, weakness, others Musculoskeletal: reports: others (bilateral ankles and feet swelling); denies: back pain, gout, joint pain, joint swelling, muscle pain, muscle stiffness, neck pain Integumetry: denies: bruises, change in color, change in hair/nails, dryness, laceration, lesions, lumps, rash, wounds, others Allergic/Immunocompromised: denies: Difficulty Healing, Frequent Infections, Hives, Itching, others Hematologic/Lymphatic: denies: anemia, blood clots, easy bleeding, easy bruising, swollen glands, others Endocrine: denies: excessive hunger, excessive sweating, excessive thirst, excessive urination, flushing, intolerance to cold, intolerance to heat, unexplained weight gain, unexplained weight loss, others Psychiatric: denies: anxiety, bipolar disorder, depression, hopeless, panic disorder, schizophrenia, sleepless, suicidal, others All Other Systems: Reviewed and Negative Physical Exam General Appearance: No Apparent Distress, Normal HEENT: Normal ENT Inspection, Pharynx Normal, TMs Normal Neck: Full Range of Motion, Non-Tender, Normal, Normal Inspection Respiratory: Chest Non-Tender, Lungs Clear, No Accessory Muscle Use, No Respiratory Distress, Normal Breath Sounds Cardiovascular: No Edema, No JVD, No Murmur, No Gallop, Normal Peripheral Pulses, Regular Rate/Rhythm Breast Exam: Deferred Gastrointestinal: No Organomegaly, Non Tender, No Pulsatile Mass, Normal Bowel Sounds, Soft Genitalia: Deferred Pelvic: Deferred Rectal: Deferred Extremities: No calf tenderness, Normal capillary refill, Normal inspection, Normal range of motion, Non-tender, No pedal edema Musculoskeletal : Apperance: Normal Neurologic: Alert, fur puller II-XII nml as Tested, No Motor Deficits, Normal Affect, Normal Mood, No Sensory Deficits Cerebellar Function: Normal Reflexes: Normal Skin: Dry, Normal Color, Warm Lymphatic: No Adenopathy Was a procedure done? Was a procedure done?: No Differential Dx Differential Diagnosis: CHF, COPD, Dysrhythmia, Pneumonia, URI X-Ray, Labs, Meds, VS Vital Signs Date Time Temp Pulse Resp B/P (MAP) Pulse Ox O2 Delivery O2 Flow Rate FiO2 09/23/24 13:29 144/98 09/23/24 13:01 86 15 144/90 (108) 95 09/23/24 12:17 70 17 125/87 (100) 92 09/23/24 10:41 85 15 97 Nasal Cannula* 2 28 09/23/24 10:20 89 09/23/24 10:15 85 15 129/92 (104) 97 09/23/24 10:02 97.5 85 20 136/80 (98) 95 Lab Test 09/23/24 14:00 09/23/24 13:44 09/23/24 11:53 09/23/24 10:50 Range/Units Troponin I High Sensitivity 17 19 18 </=54 ng/L Urine Color Yellow Yellow Urine Clarity Clear Clear Urine pH 5.0 5.0-9.0 Urine Specific Randolph 1.020 1.001-1.035 Urine Protein Negative Negative Urine Ketones Negative Negative Urine Blood Negative Negative /uL Urine Nitrite Negative Negative Urine Bilirubin Negative Negative Urine Urobilinogen Normal Negative mg/dL Urine Leukocyte Esterase Negative Negative /uL Urine RBC 1 0 - 3 /hpf Urine WBC <1 0 - 3 /hpf Urine Squamous Epithelial Cells Few <5 /hpf Urine Calcium Oxalate Crystals Few None Seen Urine Bacteria None seen None Seen /hpf Urine Hyaline Casts Few 0 - 2 /lpf Urine Mucus Few None Seen Urine Glucose Normal Normal mg/dL White Blood Count 7.1 4.4-10.8 10^3/uL Red Blood Count 4.95 4.5-5.90 10^6/uL Hemoglobin 15.3 13.5-17.5 g/dL Hematocrit 47.7 41.0-53.0 % Mean Corpuscular Volume 96.5 80.0-100.0 fL Mean Corpuscular Hemoglobin 30.8 28.0-32.0 pg Mean Corpuscular Hemoglobin Concent 32.0 32.0-36.0 g/dL Red Cell Distribution Width 16.1 H 11.8-14.3 % Platelet Count 133 L 140-450 10^3/uL Mean Platelet Volume 9.2 6.9-10.8 fL Neutrophils (%) (Auto) 73.3 37.0-80.0 % Lymphocytes (%) (Auto) 14.7 10.0-50.0 % Monocytes (%) (Auto) 9.9 0.0-12.0 % Eosinophils (%) (Auto) 1.8 0.0-7.0 % Basophils (%) (Auto) 0.3 0.0-2.0 % Neutrophils # (Auto) 5.2 1.6-8.6 10 ^3/uL Lymphocytes # (Auto) 1.0 0.4-5.4 10 ^3/uL Monocytes # (Auto) 0.7 0-1.3 10 ^3/uL Eosinophils # (Auto) 0.1 0-0.8 10 ^3/uL Basophils # (Auto) 0 0-0.2 10 ^3/uL Nucleated Red Blood Cells 0.1 % Sodium Level 142 136-145 mmol/L Potassium Level 4.0 3.5-5.1 mmol/L Chloride Level 107 98-107 mmol/L Carbon Dioxide Level 27 20-31 mmol/L Anion Gap 8 5-15 Blood Urea Nitrogen 13 9-23 mg/dL Creatinine 0.68 L 0.700-1.30 mg/dL Glomerular Filtration Rate Calc 98 >90 mL/min BUN/Creatinine Ratio 19.1 10.0-20.0 Serum Glucose 98 74-106 mg/dL Calcium Level 9.6 8.7-10.4 mg/dL B-Type Natriuretic Peptide 1040.32 0-100 pg/mL Current Medications Medications (Trade) Dose Ordered Sig/Anai Route Start Time Stop Time Status Last Admin Furosemide (Lasix Injection) 40 mg ONCE ONCE IV 09/23/24 13:00 09/23/24 13:01 DC 09/23/24 13:29 [place] [id number] Ph: [phone] DIAGNOSTIC IMAGING Diagnostic Imaging Report : [id number] Signed PATIENT: MIGUELITO WILLIS ACCT: [id number] UNIT: [id number] : 1950 LOC: ER ROOM / BED: / AGE / SEX: 74 / M ADM STATUS: REG ER SERVICE 1035 ORDERING PHYSICIAN: ABBEY DIOP MD PROCEDURE(s): CXRP - CHEST PORTABLE REASON: ekg ORDER NUMBER(s): [id number], ACCESSION NUMBER(s): [id number] CHEST RADIOGRAPH Indication: ekg Technique: Single frontal view of the chest was obtained Comparison: XY CHEST PORTABLE on DOS: 02/06/24 FINDINGS: Lines and Tubes: There is a pacemaker with right atrial and ventricular leads. Lungs: Pulmonary interstitial prominence. No focal consolidation. Pleura: No effusion. No pneumothorax. Cardiomediastinal contours: Cardiomegaly. Bones: No acute osseous abnormality. There is a left shoulder prosthesis. IMPRESSION: 1. Pulmonary congestion. 2. Cardiomegaly. ATED BY: AGUSTO CONNER MD DICTATED DATE/TIME: 09/23/241108 SIGNED BY: AGUSTO CONNER MD SIGNED DATE/TIME: 09/23/241108 CC: Time of 1ST Reevaluation: 10:48 Reevaluation 1ST: Unchanged Patient Education/Counseling: Diagnosis, Treatment, Prognosis Family Education/Counseling: No Family Present Additional Information HI DATA VOL/COMPLEXITY:>2 External Notes- Ordered Test- LAB, XY, EKG Reviewed Results: BMP, CBC, BNP, TROP, TROP, TROP Independent Hx- no Interpreted Results-(XY/EKG) Discuss Tx/Results- medical personnel, pt Departure 1 Departure Time of Disposition: 15:23 (Patient presented with acute shortness of breath concerning for acute on chronic COPD Exacerbation, Pneumonia, ACS, CHF, Pneumothorax. Less likely PE, Dissection. Data: 1. I ordered and reviewed the result of at least 3 labs including a CBC, BMP, and Troponin. 2. I independently interpreted the following tests: Chest X-ray shows pulmonary vascular congestion .Risk:This patient has a moderate risk. Discussed with patient offered admission however patient like to go home. We will discharge patient home with outpatient follow up. Patient likely has a CHF exacerbation. He received 40 IV of Lasix and is paying extensively and now his breathing significantly better. He is now on his home 2 L nasal cannula O2. He would like to go home.) Impression: Primary Impression: Acute exacerbation of CHF (congestive heart failure) Qualified Codes: I50.43 - Acute on chronic combined systolic (congestive) and diastolic (congestive) heart failure Disposition: HOME / SELF CARE / HOMELESS Condition: Stable Additional Instructions: You were prescribed more Lasix. You should take 40 mg of Lasix per day. It is important to follow up with the regular doctor this week. If your symptoms worsen or other concerns please return to the emergency room. e-Prescriptions Furosemide (Lasix) 20 Mg Tb 2 TAB PO DAILY for 30 Days, #60 TAB 1 Refill Prov: ABBEY DIOP MD 09/23/24 Discharged With: Self Critical Care Note Critical Care Time?: No Stability Stability form required: No Heart Score Heart Score: Heart Score Response (Comments) Value History N/A 0 EKG N/A 0 Age N/A 0 Risk Factors N/A 0 Troponin N/A 0 Total 0 I personally scribed for ABBEY DIOP MD ([email or web address]) on 09/23/24 at 10:32. Electronically submitted by Shae Narvaez ([email or web address]). I personally scribed for ABBEY DIOP MD ([email or web address]) on 09/23/24 at 10:45. Electronically submitted by Shae Narvaez ([email or web address]). I personally scribed for ABBEY DIOP MD ([email or web address]) on 09/23/24 at 12:18. Electronically submitted by Shae Narvaez ([email or web address]). ABBEY DIOP MD Sep 23, 2024 10:32
[2024-09-23 10:41] VITALS: PULSE 85; RESP 15; O2SAT 97
[2024-09-23 11:05] LABS: Basophils # (auto) 0 10 ^3/uL (0-0.2); Basophils % (auto) 0.3 % (0.0-2.0); Eosinophils # (auto) 0.1 10 ^3/uL (0-0.8); Eosinophils % (auto) 1.8 % (0.0-7.0); Hematocrit 47.7 % (41.0-53.0); Hemoglobin 15.3 g/dL (13.5-17.5); Lymphocytes % (auto) 14.7 % (10.0-50.0); Mean Corpuscular Hemoglobin 30.8 pg (28.0-32.0); Mean Corpuscular Volume 96.5 fL (80.0-100.0); Monocytes # (auto) 0.7 10 ^3/uL (0-1.3); Monocytes % (auto) 9.9 % (0.0-12.0); Neutrophils # (auto) 5.2 10 ^3/uL (1.6-8.6); Neutrophils % (auto) 73.3 % (37.0-80.0); Nucleated Red Blood Cells % 0.1 %; Platelet Count (auto) 133 10^3/uL (140-450); Red Blood Cells 4.95 10^6/uL (4.5-5.90); Red Cell Distribution Width 16.1 % (11.8-14.3); White Blood Cell 7.1 10^3/uL (4.4-10.8)
--- NOTE | 2024-09-23 11:11 | DVH ---
CHEST RADIOGRAPH Indication: ekg Technique: Single frontal view of the chest was obtained Comparison: XY CHEST PORTABLE on DOS: 02/06/24 FINDINGS: Lines and Tubes: There is a pacemaker with right atrial and ventricular leads. Lungs: Pulmonary interstitial prominence. No focal consolidation. Pleura: No effusion. No pneumothorax. Cardiomediastinal contours: Cardiomegaly. Bones: No acute osseous abnormality. There is a left shoulder prosthesis. IMPRESSION: 1. Pulmonary congestion. 2. Cardiomegaly.
[2024-09-23 11:16] LABS: Anion Gap 8 (5-15); Carbon Dioxide 27 mmol/L (20-31); Sodium 142 mmol/L (136-145)
[2024-09-23 11:17] LABS: Calcium 9.6 mg/dL (8.7-10.4)
[2024-09-23 11:21] LABS: Glucose 98 mg/dL (74-106)
[2024-09-23 11:22] LABS: BUN/Creatinine Ratio 19.1 (10.0-20.0); Blood Urea Nitrogen 13 mg/dL (9-23)
[2024-09-23 11:31] LABS: Chloride 107 mmol/L (98-107)
[2024-09-23] MEDS: FUROSEMIDE 40 MG/4 ML VIAL IV ONE (13:29)
[2024-09-23 13:45] LABS: Urine Bacteria None Seen /hpf (None Seen)
[2024-09-23 13:55] LABS: Urine Blood Negative /uL (Negative); Urine Clarity Clear (Clear); Urine Color Yellow (Yellow); Urine Hyaline Cast FEW /lpf (0 - 2); Urine Mucus FEW (None Seen); Urine Protein, UAD Negative (Negative); Urine Urobilinogen Normal (Negative); Urine WBC <1 /hpf (0 - 3)
[2024-09-23] MEDS ORDERED: FURO1TAB33 PO (15:26)
[2024-09-23 15:42] VITALS: BP 148/98; PULSE 66; RESP 16; O2SAT 93
== END 2024-09-23 15:38 | disposition home or self-care (01) ==
LOC: ER 09:57
DX: I50.9 Heart failure, unspecified (principal); I48.91 Unspecified atrial fibrillation; R07.9 Chest pain, unspecified; R09.89 Other specified symptoms and signs involving the circulatory and respiratory systems; Z95.0 Presence of cardiac pacemaker
CPT/HCPCS: 36415; 71045; 80048; 81001; 83880; 84484; 85025; 93005; 96374; 99285; J1940

== ENCOUNTER 2024-10-10 06:16 | Inpatient (IN) | payer OTHER ==
[~2024-10-10] VITALS: Ht 170.2 cm; Wt 111.6 kg
[2024-10-10] VITALS (22 sets, daily range): BP systolic 84–143; BP diastolic 34–104; PULSE 77–103; RESP 11–23; TEMP 97.6–98.1; O2SAT 90–100
[~2024-10-10 06:16] MED LIST changes: -DAPA1TAB4 PO; -POTA-36 PO; +SACU1CAP2 PO
[2024-10-10] MEDS: TRANEXAMIC ACID 20 ML ONE (06:22)
[2024-10-10] MEDS: CELECOXIB 100 MG CAP ONE (07:04)
[2024-10-10] MEDS: ceFAZolin 2 GM/D5W100ml 100 ML IV ONE (07:12)
[2024-10-10] MEDS: PREGABALIN CAPSULE 75 MG CAP PO ONE (07:15)
[2024-10-10] MEDS: ACETAMINOPHEN IV 1000 MG/100ML (10MG/ML) IV ONE (07:15)
[2024-10-10] MEDS: CELECOXIB 100 MG CAP PO ONE (07:15)
[2024-10-10] MEDS: ROPIVACAINE 0.5% (5MG/ML) 20ML AMPULE IJ ONE (07:22)
[2024-10-10] MEDS ORDERED: fentaNYL CITRATE 100 MCG/2 ML VL ONE (07:28)
[2024-10-10] MEDS ORDERED: MIDAZOLAM HCL 2MG/2ML 2ml VIAL (1mg/ml) ONE (07:28)
[2024-10-10] MEDS ORDERED: ALBUTEROL SULF HFA 90MCG INH 200DOSE IN PRN (07:30)
[2024-10-10] MEDS ORDERED: PATIENTS OWN MEDICATION (Buspirone Hcl 1 TAB) PO SCH (07:30)
[2024-10-10] MEDS ORDERED: IPRATROPIUM BROM 0.5 MG/2.5ML INH SOL HHN PRN (07:30)
[2024-10-10] MEDS ORDERED: GLYCOPYRROLATE 0.2 MG/ML 1ML VIAL ONE (07:31)
[2024-10-10] MEDS ORDERED: LIDOCAINE 2% (LOCAL ANESTH.) PF 5ml SDV ONE (07:31)
[2024-10-10] MEDS ORDERED: ROCURONIUM 10MG/ML 10ML VIAL IV ONE (07:31)
[2024-10-10] MEDS ORDERED: ONDANSETRON HCL 4 MG/2 ML VIAL ONE (07:31)
[2024-10-10] MEDS ORDERED: HYDROCORTISONE SOD SUCC 100 MG/2ML INJ VIAL ONE (07:31)
[2024-10-10] MEDS ORDERED: PROPOFOL 10 MG/ML 20 ML IV ONE (07:31)
[2024-10-10] MEDS ORDERED: MORPHINE SULFATE INJ 2 MG/ml SYRG IV PRN (07:45)
[2024-10-10] MEDS ORDERED: NITROGLYCERIN 0.4 MG SL TAB SL PRN (07:45)
[2024-10-10] MEDS ORDERED: ceFAZolin 1GM/50ML 50 ML IV SCH (07:45)
[2024-10-10] MEDS ORDERED: HYDROmorphone HCL 2 MG/ML VL/or syr ONE (08:08)
[2024-10-10] MEDS ORDERED: busPIRone HCL 10 MG TAB PO SCH (08:30)
[2024-10-10] MEDS: KETOROLAC TROMETH 30 MG/ML 1ML VIAL ONE (08:42)
[2024-10-10] MEDS: BUPIVACAINE 0.25% INJ 50ML VIAL ONE (08:42)
[2024-10-10] MEDS: MORPHINE SULF PF 5 MG/10 ML VIAL ONE (08:42)
[2024-10-10] MEDS: VANCOMYCIN HCL 1000 MG VL ONE (09:37)
[2024-10-10] MEDS ORDERED: BUDESONIDE GLYCOPYRROLATE FORM IN SCH (10:00)
[2024-10-10] MEDS ORDERED: LOSARTAN POTASSIUM 50 MG TAB PO SCH (10:00)
[2024-10-10] MEDS ORDERED: PATIENTS OWN MEDICATION (Losartan Potassium 100 MG) PO SCH (10:00)
[2024-10-10] MEDS ORDERED: PATIENTS OWN MEDICATION (Carvedilol 1 TAB) PO SCH (10:00)
[2024-10-10] MEDS ORDERED: HYDROmorphone HCL 2 MG/ML VL/or syr IV PRN (10:30)
[2024-10-10] MEDS: HYDROmorphone HCL 2 MG/ML VL/or syr IV ONE (11:00)
--- NOTE | 2024-10-10 12:06 | DVH ---
CHEST RADIOGRAPH Indication: low spo2 Technique: Single frontal view of the chest was obtained COMPARISON: XY CHEST PORTABLE on DOS: 09/23/24, XY CHEST PORTABLE on DOS: 02/06/24, XY CHEST PORTABLE on DOS: 02/03/24 FINDINGS: Lines and Tubes: Left chest wall pacemaker Lungs: Mild congestion Pleura: No effusion. No pneumothorax. Cardiomediastinal contours: Unremarkable Bones: Bilateral shoulder arthroplasty. IMPRESSION: Mild congestion. Cardiomegaly.
--- NOTE | 2024-10-10 12:44 | DVH ---
CLINICAL INDICATION: sp Right reverse TSA TECHNIQUE: XY R SHOULDER 1V XRAY Comparison: None FINDINGS/IMPRESSION: Right total shoulder arthroplasty. Skin elan.
[2024-10-10] MEDS: NALOXONE HCL 0.4 MG/ML VIAL ONE (13:25)
[2024-10-10 13:54] LABS: Base Excess -3.3 mmol/L (-2.0-3.0)
[2024-10-10 14:58] LABS: Base Excess -3.2 mmol/L (-2.0-3.0)
[2024-10-10] MEDS: FUROSEMIDE 20 MG/2 ML VIAL IV ONE ×3 (15:00→19:00)
[2024-10-10] MEDS ORDERED: FUROSEMIDE 20 MG/2 ML VIAL ONE (15:21)
--- NOTE | 2024-10-10 15:36 | DVHHP2 ---
History of Present Illness Reason for Visit: Right shoulder surgery History of Present Illness Disease 74-year-old gentleman with coronary artery disease with AICD came to the hospital for elective shoulder surgery. Patient underwent shoulder surgery and in the recovery room patient noted to be in acute respiratory distress. Therefore he is started on BiPAP. Patient received a dose of Narcan which seemed to improve his respiratory status and mentation. Hospitalist consulted for further management while in the hospital. Past Medical History Cardiomyopathy with ejection fraction about 35%. Coronary artery disease cardiovascular disease. Chronic atrial fibrillation. Pulmonary hypertension Past Surgical History Pacemaker/AICD placed Family History: Hypertension Smoke: No ALCOHOL: rare Lives: with Family Review of Systems Review of Systems Currently is on BiPAP. However he is alert and awake follows commands. Patient apparently received Narcan prior to my evaluation per nurse who is at bedside. Denies any complaints of chest pain. Allergies: Coded Allergies: NO KNOWN ALLERGIES (Unverified , 10/10/24) Medications Current Medications Medications Dose Ordered Sig/Anai Route Start Time Stop Time Status Last Admin Dose Admin Apixaban 5 mg BID PO 10/10/24 10:00 Patient Own Medication 1 tab Q8HR PRN PO 10/10/24 07:30 UNV Patient Own Medication 1 tab Q12HR PO 10/10/24 10:00 UNV Patient Own Medication 100 mg DAILY PO 10/10/24 10:00 UNV Patient Own Medication 1 tab DAILY PO 10/10/24 10:00 Patient Own Medication 200 mg HS PO 10/10/24 22:00 UNV Sodium Chloride 10 ml Q8HR IV 10/10/24 14:00 Cefazolin Sodium 50 ml @ 50 mls/hr Q8H IV 10/10/24 07:45 10/11/24 00:44 Acetaminophen/ Hydrocodone Bitart 1 tab Q4HP PRN PO 10/10/24 07:45 Nitroglycerin 0.4 mg Q5MINP PRN SL 10/10/24 07:45 Hold Morphine Sulfate 2 mg Q30M PRN IV 10/10/24 07:45 Hydromorphone HCl 1 mg Q3HPRN PRN IV 10/10/24 07:45 Trazodone HCl 200 mg HS PO 10/10/24 22:00 Buspirone HCl 15 mg q8hprn PO 10/10/24 08:30 Carvedilol 25 mg BID PO 10/10/24 10:00 Albuterol 2.5 mg Q6HPRN PRN NEB 10/10/24 09:45 Ipratropium [place] 0.5 mg Q6HPRN PRN NEB 10/10/24 09:45 Cefepime HCl 50 ml @ 12.5 mls/hr DAILY IV 10/11/24 10:00 Furosemide 40 mg BIDD IV 10/10/24 18:00 Exam Vital Signs Vital Signs Date Time Temp Pulse Resp B/P (MAP) Pulse Ox O2 Delivery O2 Flow Rate FiO2 10/10/24 13:20 92 139/75 97 Nasal BiPAP Mask 40 10/10/24 13:10 13 10/10/24 11:15 8.0 10/10/24 10:22 97.0 97.0 Exam Comfortable on BiPAP. Alert and awake who oriented to person. HEENT pupils equal round react to light. Neck supple without any elevated JVD. Heart regular rate and rhythm S1 plus S2. Lungs fair air movement without any audible rales or wheezing. Degraded breath sounds in the bases. Abdomen obese soft nontender positive bowel sounds. Extremities no edema positive pulses. Neurologically no focal deficits noted. Labs/Xrays Labs Test 10/10/24 14:45 Range/Units Blood Gas Specimen Type Arterial Blood Gas Sample Site Left radial Blood Gas Patient Temperature 37.0 Arterial Blood Date Drawn [id number] Arterial Blood pH 7.242 *L 7.350-7.450 Arterial Blood Partial Pressure CO2 60.8 *H 35.0-48.0 mmHg Arterial Blood Partial Pressure O2 74.8 L 83.0-108.0 mmHg Arterial Blood HCO3 25.6 21.0-28.0 mmol/L Arterial Blood Oxygen Saturation 93.7 L 94.0-98.0 % Arterial Blood Base Excess -3.2 L -2.0-3.0 mmol/L Arterial Blood Oxyhemoglobin 88.6 L 94.0-98.0 % Arterial Blood Carboxyhemoglobin 5.1 H 0.5-1.5 % Arterial Blood Methemoglobin 0.3 0.0-1.5 % Mickey Test Yes Blood Gas Total Hemoglobin 16.30 13.5-17.5 g/dL Blood Gas Set Respiration Rate 12.0 Blood Gas Modality Mask - bipap FiO2 % 40.0 Blood Gas Spontaneous Tidal Volume 623 Blood Gas EPAP 5 Blood Gas IPAP 15 Blood Gas Critical Value Read Back Yes Blood Gas Notified Whom Blood Gas Notified Time [id number] Blood Gas Notified By Aysha whittaker rt Assessment/Plan Assessment/Plan Patient post Narcan mentation has slightly improved and oxygenating appropriately on BiPAP. We will keep the BiPAP for now. Given patient's extensive cardiac history with low ejection fraction I will give him a Lasix IV now and start him on 40 IV Lasix b.i.d. with potassium replacement. We will hold off any sedatives including trazodone till he is more awake. Otherwise we will have his cardiology and pulmonology consultations while in the hospital to evaluate him. Follow up labs. Pain and nausea medications. Supportive care and treatment. Further clinical management per clinical course and recommendations from consultants. Discussed with the nurse as well as patient regarding care plan. Plan discussed with: Patient, Other My Orders Orders - KENNETH REES MD Procedure Category Date Status Time Dr. Linda Chappell CONS 10/10/24 Transmitted Care 14:21 *Consult Dr[address] Calloway CONS 10/10/24 Transmitted 14:21 Furosemide Injection PHA 10/10/24 In Process (Lasix Injection) 18:00 Basic Metabolic Panel LAB 10/11/24 Verified 05:00 Basic Metabolic Panel LAB 10/12/24 Verified 05:00 Basic Metabolic Panel LAB 10/13/24 Verified 05:00 Basic Metabolic Panel LAB 10/14/24 Verified 05:00 Basic Metabolic Panel LAB 10/15/24 Verified 05:00 Complete Blood Count LAB 10/11/24 Verified 04:00 Chest Portable XY 10/11/24 Logged 04:00 Problem List: (1) Acute and chronic respiratory failure (2) Atrial fibrillation (3) Acute on chronic diastolic heart failure KENNETH REES MD Oct 10, 2024 15:36
[2024-10-10] MEDS: ACETAMINOPHEN IV 100 ML IV ONE (19:00)
[2024-10-10] MEDS: FUROSEMIDE 20 MG/2 ML VIAL ONE (19:00)
[2024-10-10] MEDS: SODIUM CHLOR 0.9% PF (SALINE LOCK) 10ML VIAL/SYR IV SCH (19:00)
[2024-10-10] MEDS: APIXABAN 5 MG TAB PO SCH (19:00)
[2024-10-10] MEDS: PREGABALIN CAPSULE 75 MG CAP ONE (19:00)
[2024-10-10] MEDS: CARVEDILOL 12.5 MG TAB PO SCH (19:00)
[2024-10-10] MEDS: FUROSEMIDE 40 MG/4 ML VIAL IV SCH (19:00)
[2024-10-10] MEDS: POTASSIUM CHL 10 Meq TABLET PO SCH (21:54)
[2024-10-10] MEDS ORDERED: traZODone HCL 50 MG TAB PO SCH (22:00)
[2024-10-10] MEDS ORDERED: TRAZODONE HCL 200 MG PO SCH (22:00)
[2024-10-11] VITALS (26 sets, daily range): BP systolic 84–131; BP diastolic 43–79; PULSE 71–104; RESP 12–24; TEMP 98–99.5; O2SAT 93–99
[2024-10-11 04:27] LABS: Basophils # (auto) 0.1 10 ^3/uL (0-0.2); Basophils % (auto) 0.6 % (0.0-2.0); Eosinophils # (auto) 0.1 10 ^3/uL (0-0.8); Eosinophils % (auto) 0.6 % (0.0-7.0); Hematocrit 45.5 % (41.0-53.0); Hemoglobin 14.6 g/dL (13.5-17.5); Lymphocytes # (auto) 1.2 10 ^3/uL (0.4-5.4); Lymphocytes % (auto) 12.2 % (10.0-50.0); Mean Corpuscular Hemoglobin 30.4 pg (28.0-32.0); Mean Corpuscular Volume 94.9 fL (80.0-100.0); Monocytes # (auto) 1.4 10 ^3/uL (0-1.3); Monocytes % (auto) 14.4 % (0.0-12.0); Neutrophils % (auto) 72.2 % (37.0-80.0); Platelet Count (auto) 181 10^3/uL (140-450); Red Cell Distribution Width 16.3 % (11.8-14.3); White Blood Cell 9.7 10^3/uL (4.4-10.8)
[2024-10-11 04:32] LABS: Chloride 105 mmol/L (98-107); Potassium 4.4 mmol/L (3.5-5.1); Sodium 140 mmol/L (136-145)
[2024-10-11 04:33] LABS: Anion Gap 4 (5-15); Calcium 8.9 mg/dL (8.7-10.4); Carbon Dioxide 31 mmol/L (20-31)
[2024-10-11 04:38] LABS: BUN/Creatinine Ratio 14.8 (10.0-20.0); Blood Urea Nitrogen 19 mg/dL (9-23)
[2024-10-11 04:43] LABS: Glucose 111 mg/dL (74-106)
--- NOTE | 2024-10-11 04:56 | DVH ---
CHEST RADIOGRAPH Indication: sob Technique: Single frontal view of the chest was obtained COMPARISON: XY CHEST PORTABLE on DOS: 10/10/24, XY CHEST PORTABLE on DOS: 09/23/24, XY CHEST PORTABLE on DOS: 02/06/24, XY CHEST PORTABLE on DOS: 10/10/24 FINDINGS: Lines and Tubes: Left chest wall pacemaker Lungs: Mild congestion Pleura: No effusion. No pneumothorax. Cardiomediastinal contours: Unremarkable Bones: Bilateral shoulder arthroplasty. IMPRESSION: Mild congestion. Cardiomegaly.
--- NOTE | 2024-10-11 06:22 | DVHOP2 ---
Operative Report - 2 Report Details Date: 10/10/24 Preop Diagnosis: Right rotator cuff arthropathy Postop Diagnosis: as above Surgeon: Jordan Alcazar MD/ Jose Franks MD Service Assistant: Varun OVIEDO Anesthesiologist: Emil SOLIS Anesthesia: General, Regional Implant: [employer]hew reverse total shoulder Consent: The patient was informed of the risks and benefits of the procedure. These include but are not limited to complications of anesthesia, postoperative infection, incomplete relief of symptoms, recurrence of symptoms, damage to blood vessels, nerves and tendons, deep venous thrombosis, pulmonary embolism and possible need for repeat surgery in the future. Estimated Blood Loss: 150 cc Name of Procedure Performed Right reverse total shoulder replacement Procedure Details Procedure Details: The patient was taken to the operative suite, placed on the operative field. Department of Anesthesia administered general anesthetic. Once adequately sedated, the patient was placed in the beach chair position. Care was ensured that he was well positioned, adequately secured and padded. At this point, the right upper extremity was then prepped and draped in the usual sterile fashion. A deltopectoral approach was used and taken down to the skin with a #15 blade scalpel. Cephalic vein was transported medially. At this point, blunt dissection with Goetz scissors was used to come to the overlying subscapular tendon and bursal tissue. Any perforating bleeders were cauterized with Bovie to obtain hemostasis. Once the bursa was seen, it was removed with a Rongeur and subscapular tendon could be easily visualized. At this point, the rotator cuff in the subacromial region was evaluated. There was noted to be a large rotator cuff, which was irreparable. There was eburnated bone on the greater tuberosity noted. The articular surface could be visualized. The biceps tendon was intact. Biceps tenodesis was done to the pec minor. At this point, the subscapular tendon was then taken off using Bovie cautery and Metzenbaum scissors. Protection of axillary nerve was done while subscap and capsule fully released. It was from the capsule to have a two layered repair at closure. The capsule was also reflected posterior. At this point, the glenoid surface could be easily visualized. It was evaluated and had end stage arthritis. The humeral head was evaluated. There was noted to be mccoy of the cartilage and eburnated bone particularly in the central portion of the humeral head. At this point, decision was made to proceed with the arthroplasty, since the rotator cuff tear was irreparable and there was significant mccoy of the humoral head. The arm was adequately positioned. An oscillating saw was used to make the head articular cut using guide. This was done at the margin of the articular surface with the anatomic neck. This was taken down to appropriate level until this articular surface was adequately removed. At this point, the intramedullary canal and cancellous bone could be easily visualized. The opening hand reamers were then used and this was advanced to a size that had a good fit. Under direct visualization, this was performed easily. This was then removed. A trial component was then impacted into place, which did fit well and appeared adequately secured. We then turned our attention to glenoid. Batman retractor placed posteroinferiorly on glenoid. Subscap was mobilized wtih protection the axillary nerve with palpation. Blake was place between subscap and gelnoid. A bent sully was placed just above the the biceps tendon on the glenoid. Labrum was removed and capsule was released. We then placed glenoid drill guide and steinmann pin according to CT for correct version. We reamed glenoid down to bleeding cancellous bone. Glenoid irrigataed and glenoid component placed. Center lag screw with excellent bicortical purchase. 3 locking screws placed. Correct glenosphere offset determined and glenosphere impacted. Stand humeral tray and liner trialed with good IR/ER/FF and stability with only 1 mm shuck. Trial liner removed. Humerus trial removed. Correct humeral implant impacted along with tray and liner. Stability was appropriate. Subscap was not able to be repaired. Wound was irrigated. Deltopectoral interval closed with 0-vicryl followed by 2-0 and elan for skin. Aquacel dressing placed. Condition Good Disposition Still a Patient JORDAN ALCAZAR MD Oct 11, 2024 06:22
[2024-10-11] MEDS ORDERED: FUROSEMIDE 20 MG TAB PO SCH (07:00)
[2024-10-11] MEDS: CEFEPIME 1GM/ 50ML 50 ML IV SCH ×2 (10:59→21:12)
[2024-10-11] MEDS: IPRATROPIUM BROM 0.5 MG/2.5ML INH SOL NEB PRN (11:41)
[2024-10-11] MEDS: ALBUTEROL SULF 2.5 MG/0.5ML(0.5%) NEB SOLN NEB PRN (11:42)
--- NOTE | 2024-10-11 12:37 | DVHINCON2 ---
Date of service: Oct 11, 2024 History of Present Illness Disease 74-year-old gentleman with coronary artery disease with AICD came to the hospital for elective shoulder surgery. Patient underwent shoulder surgery and in the recovery room patient noted to be in acute respiratory distress. Therefore he is started on BiPAP. Patient received a dose of Narcan which seemed to improve his respiratory status and mentation. Hospitalist consulted for further management while in the hospital. Past Medical History Cardiomyopathy with ejection fraction about 35%. Coronary artery disease cardiovascular disease. Chronic atrial fibrillation. Pulmonary hypertension Past Surgical History Pacemaker/AICD placed Family History: Hypertension Smoke: No ALCOHOL: rare Lives: with Family Past Medical History reviewed Family History: Cardiovascular disease G8 MOTHER, G8 FATHER, Allergies: Coded Allergies: NO KNOWN ALLERGIES (Unverified , 10/10/24) Home Meds Active Scripts Ipratropium [place] (Ipratropium [place]) 0.02 % [place], 0.5 % HHN Q6HP PRN for 60 Days, #1200 ML Prov:JUAN RODRIGUEZ MD 02/08/24 Reported Medications Sacubitril-Valsartan (Entresto 15-16 mg) 1 Cap Cap, 1 CAP PO, CAP 10/07/24 Albuterol Sulfate (Albuterol Sulfate Hfa) 108 Mcg/Act Aer, 1 PUFF IN Q4-6HR PRN for SHORTNESS OF BREATH for 33 Days, #8.5 08/30/24 Tadalafil (Tadalafil) 5 Mg Tab, 1 TAB PO DAILY 08/29/24 Trazodone HCl (Trazodone Hydrocloride) 100 Mg Tab, 200 MG PO HS 02/04/24 Buspirone Hcl (Buspirone Hcl) 15 Mg Tab, 1 TAB PO Q8HR PRN for 90 Days, #270 02/04/24 Losartan Potassium (Losartan Potassium) 100 Mg Tab, 100 MG PO DAILY for 30 Days, MG 02/04/24 Twzgseeosq-Ecugpfgdqxjlda-Jreb (Breztri Aerosphere 160-9-4.8 Mcg/Act) 1 Aer Aer, 2 PUFF INH BID 01/12/24 Furosemide (Furosemide) 20 Mg Tab, 1 TAB PO QAM 01/12/24 Carvedilol (Carvedilol) 25 Mg Tab, 1 TAB PO Q12HR for HYPERTENSION 05/03/21 Apixaban Base (ELIQUIS) 5 Mg Tab, 5 MG PO BID for ATRIAL FIB. 05/03/21 Current Medications Current Medications Medications (Trade) Dose Ordered Sig/Anai Route PRN Reason Start Time Stop Time Status Last Admin Furosemide (Lasix Tablet) 20 mg QAM PO 10/11/24 07:00 10/10/24 14:29 DC Patient Own Medication 200 mg HS PO 10/10/24 22:00 UNV Sodium Chloride (Saline Lock Ns) 10 ml Q8HR IV 10/10/24 14:00 10/11/24 05:25 Trazodone HCl (Desyrel) 200 mg HS PO 10/10/24 22:00 10/10/24 15:33 DC Cefepime HCl 50 ml @ 12.5 mls/hr DAILY IV 10/11/24 10:00 10/11/24 11:20 DC 10/11/24 10:59 Furosemide (Lasix Injection) 40 mg BIDD IV 10/10/24 18:00 10/11/24 05:39 Potassium Chloride (Klor-Con Tablet) 10 meq BID PO 10/10/24 22:00 10/11/24 10:58 Cefepime HCl 50 ml @ 12.5 mls/hr Q12HR IV 10/11/24 22:00 Carvedilol (Coreg Tablet) 12.5 mg BID PO 10/11/24 22:00 Review of Systems 10 pt ros otherwise negative Vital Signs Vital Signs Date Time Temp Pulse Resp B/P (MAP) Pulse Ox O2 Delivery O2 Flow Rate FiO2 10/11/24 12:00 18 97 Nasal Cannula* 3 32 10/11/24 12:00 93 10/11/24 11:00 98/50 (66) 10/11/24 07:00 99.4 99.4 Physical Exam nad s1 s2 irregular ctab soft nt/nd trivial edema Labs/Diagnostic Data Labs Test 10/11/24 04:00 10/10/24 14:45 Range/Units White Blood Count 9.7 4.4-10.8 10^3/uL Red Blood Count 4.80 4.5-5.90 10^6/uL Hemoglobin 14.6 13.5-17.5 g/dL Hematocrit 45.5 41.0-53.0 % Mean Corpuscular Volume 94.9 80.0-100.0 fL Mean Corpuscular Hemoglobin 30.4 28.0-32.0 pg Mean Corpuscular Hemoglobin Concent 32.0 32.0-36.0 g/dL Red Cell Distribution Width 16.3 H 11.8-14.3 % Platelet Count 181 140-450 10^3/uL Mean Platelet Volume 8.6 6.9-10.8 fL Neutrophils (%) (Auto) 72.2 37.0-80.0 % Lymphocytes (%) (Auto) 12.2 10.0-50.0 % Monocytes (%) (Auto) 14.4 H 0.0-12.0 % Eosinophils (%) (Auto) 0.6 0.0-7.0 % Basophils (%) (Auto) 0.6 0.0-2.0 % Neutrophils # (Auto) 7.0 1.6-8.6 10 ^3/uL Lymphocytes # (Auto) 1.2 0.4-5.4 10 ^3/uL Monocytes # (Auto) 1.4 H 0-1.3 10 ^3/uL Eosinophils # (Auto) 0.1 0-0.8 10 ^3/uL Basophils # (Auto) 0.1 0-0.2 10 ^3/uL Nucleated Red Blood Cells 0.0 % Sodium Level 140 136-145 mmol/L Potassium Level 4.4 3.5-5.1 mmol/L Chloride Level 105 98-107 mmol/L Carbon Dioxide Level 31 20-31 mmol/L Anion Gap 4 L 5-15 Blood Urea Nitrogen 19 9-23 mg/dL Creatinine 1.28 0.700-1.30 mg/dL Glomerular Filtration Rate Calc 59 >90 mL/min BUN/Creatinine Ratio 14.8 10.0-20.0 Serum Glucose 111 H 74-106 mg/dL Calcium Level 8.9 8.7-10.4 mg/dL Magnesium Level 2.1 1.6-2.6 mg/dL Blood Gas Specimen Type Arterial Blood Gas Sample Site Left radial Blood Gas Patient Temperature 37.0 Arterial Blood Date Drawn [id number] Arterial Blood pH 7.242 *L 7.350-7.450 Arterial Blood Partial Pressure CO2 60.8 *H 35.0-48.0 mmHg Arterial Blood Partial Pressure O2 74.8 L 83.0-108.0 mmHg Arterial Blood HCO3 25.6 21.0-28.0 mmol/L Arterial Blood Oxygen Saturation 93.7 L 94.0-98.0 % Arterial Blood Base Excess -3.2 L -2.0-3.0 mmol/L Arterial Blood Oxyhemoglobin 88.6 L 94.0-98.0 % Arterial Blood Carboxyhemoglobin 5.1 H 0.5-1.5 % Arterial Blood Methemoglobin 0.3 0.0-1.5 % Mickey Test Yes Blood Gas Total Hemoglobin 16.30 13.5-17.5 g/dL Blood Gas Set Respiration Rate 12.0 Blood Gas Modality Mask - bipap FiO2 % 40.0 Blood Gas Spontaneous Tidal Volume 623 Blood Gas EPAP 5 Blood Gas IPAP 15 Blood Gas Critical Value Read Back Yes Blood Gas Notified Whom Blood Gas Notified Time [id number] Blood Gas Notified By Aysha whittaker rt Assessment postop sob s/p ortho surgery hx of chronic HF, systolic NYHA Class III mitral regurg hypercapneia Plan/Recommendation cont iv bid lasix cont co2 management--was on bipap , doing better rate control resume doac when feasible Plan discussed with: Patient TARAN GREEN MD Oct 11, 2024 12:37
[2024-10-11] MEDS: HYDROcodone-ACET 5/325MG TAB PO PRN (12:41)
--- NOTE | 2024-10-11 13:40 | DVHPN2 ---
Progress Note - Dictate Date Seen: Oct 11, 2024 Medical Necessity Reason Pt with a Central, PICC or Fol: No Subjective On couple of L of oxygen via nasal cannula today. Otherwise no other complaints. Feels better. vital signs Vital Sign Date Time Temp Pulse Resp B/P (MAP) Pulse Ox O2 Delivery O2 Flow Rate FiO2 10/11/24 12:00 18 97 Nasal Cannula* 3 32 10/11/24 12:00 93 10/11/24 11:00 98/50 (66) 10/11/24 07:00 99.4 99.4 Total Intake and Output 10/10/24 10/10/24 10/11/24 15:00 23:00 07:00 Intake Total 300 ml Output Total 350 ml Balance -50 ml medications Current Medications Medications Dose Ordered Sig/Anai Route Start Time Stop Time Status Last Admin Dose Admin Apixaban 5 mg BID PO 10/10/24 10:00 10/11/24 10:59 5 MG Patient Own Medication 1 tab Q8HR PRN PO 10/10/24 07:30 UNV Patient Own Medication 1 tab Q12HR PO 10/10/24 10:00 UNV Patient Own Medication 100 mg DAILY PO 10/10/24 10:00 UNV Patient Own Medication 1 tab DAILY PO 10/10/24 10:00 Patient Own Medication 200 mg HS PO 10/10/24 22:00 UNV Sodium Chloride 10 ml Q8HR IV 10/10/24 14:00 10/11/24 05:25 10 ML Acetaminophen/ Hydrocodone Bitart 1 tab Q4HP PRN PO 10/10/24 07:45 10/11/24 12:41 1 TAB Nitroglycerin 0.4 mg Q5MINP PRN SL 10/10/24 07:45 Hold Morphine Sulfate 2 mg Q30M PRN IV 10/10/24 07:45 Hydromorphone HCl 1 mg Q3HPRN PRN IV 10/10/24 07:45 Buspirone HCl 15 mg q8hprn PO 10/10/24 08:30 Albuterol 2.5 mg Q6HPRN PRN NEB 10/10/24 09:45 10/11/24 11:42 2.5 MG Ipratropium [place] 0.5 mg Q6HPRN PRN NEB 10/10/24 09:45 10/11/24 11:41 0.5 MG Furosemide 40 mg BIDD IV 10/10/24 18:00 10/11/24 05:39 40 MG Potassium Chloride 10 meq BID PO 10/10/24 22:00 10/11/24 10:58 10 MEQ Cefepime HCl 50 ml @ 12.5 mls/hr Q12HR IV 10/11/24 22:00 Carvedilol 12.5 mg BID PO 10/11/24 22:00 objective Normal mentation. Family at bedside. Alert awake oriented x3. Heart regular rate and rhythm S1-S2. Lungs fair air movement without rales wheezes. Abdomen obese positive bowel sounds. Extremities no edema. Right arm is in sling. laboratory and microbiology Laboratory Tests 10/11/24 04:00 Test 10/11/24 04:00 Range/Units Serum Glucose 111 H 74-106 mg/dL Assessment/Plan Given patient is clinically stable we will downgrade and transferred him to telemetry floor. Encouraged physical therapy activity overnight. If he remains stable consider discharge home tomorrow. Patient is status post right shoulder surgery yesterday and postop respiratory failure is resolved at present. Discussed with the patient and family at bedside regarding care plan. Problems(with codes): (1) Acute exacerbation of CHF (congestive heart failure) (2) Generalized weakness (3) Acute and chronic respiratory failure Plan discussed with: Patient, Spouse, Other KENNETH REES MD Oct 11, 2024 13:40
[2024-10-11] MEDS: HYDROmorphone HCL 2 MG/ML VL/or syr IV PRN (16:37)
[2024-10-11] MEDS: ONDANSETRON HCL 4 MG/2 ML VIAL IV ONE (18:36)
[2024-10-11] MEDS: CARVEDILOL 12.5 MG TAB PO SCH (21:13)
[2024-10-12] VITALS (8 sets, daily range): BP systolic 96–124; BP diastolic 55–82; PULSE 84–103; RESP 12–20; TEMP 36.6; O2SAT 93–98
[2024-10-12 05:46] LABS: Anion Gap 2 (5-15); Chloride 100 mmol/L (98-107); Sodium 137 mmol/L (136-145)
[2024-10-12 05:47] LABS: Calcium 9.5 mg/dL (8.7-10.4)
[2024-10-12 05:52] LABS: BUN/Creatinine Ratio 24.3 (10.0-20.0)
[2024-10-12 06:02] LABS: Blood Urea Nitrogen 25 mg/dL (9-23); Carbon Dioxide 35 mmol/L (20-31); Glucose 128 mg/dL (74-106)
--- NOTE | 2024-10-12 07:55 | DVHDS2 ---
Discharge Summary Date of Admission Oct 10, 2024 at 07:31 Date of Discharge: Oct 12, 2024 Wounds: If the wound is draining simply tape a dry gauze pad on the wound until it stops. If drainage persists past 10 days please notify our office. 1. You might notice some bruising around the surgical site, this is normal. 2. Please note that a low-grade temp below 101 is not uncommon after surgery especially during the first 3 days. Notify the office if your temperature spikes above 101.5 after the 3rd post-operative date. 3. Many patients experience significant swelling in the arm, this may extend below the elbow. Swelling increases during the first week and subsides during the following week. 4. Provided you have been on a blood thinner since surgery , the risk of a blood clot is low and this swelling is an expected part of recovery. It will largely or completely resolve by your first post-operative visit. 5. Apply ice to the shoulder as it will be quite helpful. After two days, you can change the dressing to a smaller one to allow the cold to better get to the shoulder. 6. Remove the sling - Move your elbow, wrist, hand and finger several times a day. Begin the pendulum exercises several times a day. 7. Put the sling back on when youre done with these exercises. 8. After two days it is okay to shower but do not get the wound wet for at least two weeks after surgery. Keep it covered with plastic wrap while showering. 9. Do not submerge the wound as you would in a bath tub or hot tub for at least 4 weeks after surgery. 10. To wash under your operated arm bend over at the waist and let the arm passively swing away from the body. It is safe to wash under the arm in this position. 11. You will need to take prophylactic antibiotics before dental procedures, colonoscopies or other invasive procedures. This consists of Amoxicilin (2 grams one hour prior to your procedure), or if you have a penicillin allergy you should take Clindamycin (600mg one hour prior to procedure). Labs/Diagnostic Data: Laboratory Results Test 10/12/24 04:59 10/11/24 04:00 10/10/24 14:45 Sodium Level 137 mmol/L (136-145) Potassium Level 5.0 mmol/L (3.5-5.1) Chloride Level 100 mmol/L (98-107) Carbon Dioxide Level 35 mmol/L (20-31) Anion Gap 2 (5-15) Blood Urea Nitrogen 25 mg/dL (9-23) Creatinine 1.03 mg/dL (0.700-1.30) Glomerular Filtration Rate Calc 76 mL/min (>90) BUN/Creatinine Ratio 24.3 (10.0-20.0) Serum Glucose 128 mg/dL (74-106) Calcium Level 9.5 mg/dL (8.7-10.4) White Blood Count 9.7 10^3/uL (4.4-10.8) Red Blood Count 4.80 10^6/uL (4.5-5.90) Hemoglobin 14.6 g/dL (13.5-17.5) Hematocrit 45.5 % (41.0-53.0) Mean Corpuscular Volume 94.9 fL (80.0-100.0) Mean Corpuscular Hemoglobin 30.4 pg (28.0-32.0) Mean Corpuscular Hemoglobin Concent 32.0 g/dL (32.0-36.0) Red Cell Distribution Width 16.3 % (11.8-14.3) Platelet Count 181 10^3/uL (140-450) Mean Platelet Volume 8.6 fL (6.9-10.8) Neutrophils (%) (Auto) 72.2 % (37.0-80.0) Lymphocytes (%) (Auto) 12.2 % (10.0-50.0) Monocytes (%) (Auto) 14.4 % (0.0-12.0) Eosinophils (%) (Auto) 0.6 % (0.0-7.0) Basophils (%) (Auto) 0.6 % (0.0-2.0) Neutrophils # (Auto) 7.0 10 ^3/uL (1.6-8.6) Lymphocytes # (Auto) 1.2 10 ^3/uL (0.4-5.4) Monocytes # (Auto) 1.4 10 ^3/uL (0-1.3) Eosinophils # (Auto) 0.1 10 ^3/uL (0-0.8) Basophils # (Auto) 0.1 10 ^3/uL (0-0.2) Nucleated Red Blood Cells 0.0 % Magnesium Level 2.1 mg/dL (1.6-2.6) Blood Gas Specimen Type Arterial Blood Gas Sample Site Left radial Blood Gas Patient Temperature 37.0 Arterial Blood Date Drawn [id number] Arterial Blood pH 7.242 (7.350-7.450) Arterial Blood Partial Pressure CO2 60.8 mmHg (35.0-48.0) Arterial Blood Partial Pressure O2 74.8 mmHg (83.0-108.0) Arterial Blood HCO3 25.6 mmol/L (21.0-28.0) Arterial Blood Oxygen Saturation 93.7 % (94.0-98.0) Arterial Blood Base Excess -3.2 mmol/L (-2.0-3.0) Arterial Blood Oxyhemoglobin 88.6 % (94.0-98.0) Arterial Blood Carboxyhemoglobin 5.1 % (0.5-1.5) Arterial Blood Methemoglobin 0.3 % (0.0-1.5) Mickey Test Yes Blood Gas Total Hemoglobin 16.30 g/dL (13.5-17.5) Blood Gas Set Respiration Rate 12.0 Blood Gas Modality Mask - bipap FiO2 % 40.0 Blood Gas Spontaneous Tidal Volume 623 Blood Gas EPAP 5 Blood Gas IPAP 15 Blood Gas Critical Value Read Back Yes Blood Gas Notified Whom Blood Gas Notified Time [id number] Blood Gas Notified By Aysha whittaker rt Other Laboratory Tests 10/12/24 04:59 10/11/24 04:00 Brief Hx & Hospital Course: s/p right RV TSA Condition at Discharge: Good Final Diagnosis/Problems List as above Discharge Disposition: Home with Health Services Discharge Instruct/Medications Diet: Regular Diet comment: may advance diet as tolerated, drink plenty of fluids and avoid alcohol while taking narcotics Activity: See Comment Activity comment: Reverse or Inverse Total Shoulder Arthroplasty (rTSA) is designed specifically for the treatment of glenohumeral (GH) arthritis when it is associated with irreparable rotator cuff damage, complex fractures as well as for a revision of a previously failed conventional Total Shoulder Arthroplasty (TSA) in which the rotator cuff tendons are deficient. The rotator cuff is either absent or minimally involved with the rTSA; therefore, the rehabilitation for a patient following the rTSA is different than the rehabilitation following a traditional TSA. The surgeon, physical therapist and patient need to take this into consideration when establishing the postoperative treatment plan. Important rehabilitation management concepts to consider for a postoperative physical therapy rTSA program are: Joint protection: There is a higher risk of shoulder dislocation following rTSA than a conventional TSA. o Avoidance of shoulder extension past neutral and the combination of shoulder adduction and internal rotation should be avoided for 12 weeks postoperatively. o Patients with rTSA dont dislocate with the arm in abduction and external rotation. They typically dislocate with the arm in internal rotation and adduction in conjunction with extension. As such, tucking in a shirt or performing bathroom / persona hygiene with the operative arm is an especially dangerous activity particularly in the immediate armen-operative phase. Deltoid function: Stability and mobility of the shoulder joint is now dependent upon the deltoid and periscapular musculature. This concept becomes the foundation for the postoperative physical therapy management for a patient that has undergone rTSA. Reverse Total Shoulder Arthroplasty Protocol: The intent of this protocol is to provide the physical therapist with a guideline/treatment protocol for the postoperative rehabilitation management for a patient who has undergone a Reverse Total Shoulder Arthroplasty (rTSA). It is by no means intended to be a substitute for a physical therapists clinical decision making regarding the progression of a patients postoperative rehabilitation based on the individual patients physical exam/findings, progress, and/or the presence of postoperative complications. If the physical therapist requires assistance in the progression of a postoperative patient who has had rTSA the therapist should consult with the referring surgeon. The scapular plane is defined as the shoulder positioned in 30 degrees of abduction and forward flexion with neutral rotation. ROM performed in the scapular plane should enable appropriate shoulder joint alignment. Shoulder Dislocation Precautions: No shoulder motion behind back. (NO combined shoulder adduction, internal rotation, and extension.) No glenohumeral (GH) extension beyond neutral. *Precautions should be implemented for 12 weeks postoperatively unless surgeon specifically advises patient or therapist differently. Patients should use a sling for 6 weeks, not to begin deltoid isometrics for at least four weeks postoperatively, not to begin active range of motion (AROM) flexion for at least six weeks, and not begin deltoid strengthening for at least 12 weeks post operatively. Follow Up/Referral: Your post op appointment will be in 10-14 days following surgery and is scheduled for 10/25/2024 at 11:45 Medications: Take your regular medications as prescribed. You have been given a prescription for pain medication. Please take according to the instructions. If your pain becomes too severe, dont try to tough it out. Call our office if you have severe pain that doesnt respond to pain medication. Some pain medications contain Tylenol. DO NOT take additional Tylenol without discussing with your surgeon. This can lead to liver failure. Do not drive while you are on narcotic pain medication. Blood thinner ECASA 325 mg daily for 6 weeks Pain medication can cause constipation. Drink plenty of water and/or fruit juice. Take milk of magnesia if you become constipated, or use a stool softener such as Dulcolax. Discharge Statement: "Patient was advised to return to the ER or call 911 if any headaches, dizziness, shortness of breath, chest pain, abdominal pain, bleeding, fevers, or worsening of medical condition. Patient was counseled about treatment plan, medications, possible side effects, patientverbalized understanding. All questions were answered to the best of my ability. This discharge took greater then 30 minutes in planning, reviewing documentation, counseling the patient, and discussing with other team members." ASSESSMENT ASSESSMENT Assessment as above FABIEN DHALIWAL NP Oct 12, 2024 07:55
--- NOTE | 2024-10-12 11:25 | CONS ---
Pharmacy Clinical Information: From Heart Failure Fallout Report on CQM Application, Javad Worthington is a 74 year old male with PMH of CAD s/p AICD, Afib, cardiomyopathy, CHF NYHA class III (LVEF 35%) who is s/p shoulder surgery. His home medications for heart failure include losartan, carvedilol, dapagliflozin. His inpatient medications include carvedilol. SGLT2i are typically held prior to surgery. MRA not recommended since K = 5 ACEi/ARB/ARNi not recommended due to hypotensive episodes and elevated BUN. CHANDRA SANTANA PHARMACIST Oct 12, 2024 11:25
--- NOTE | 2024-10-12 11:37 | DVHPN2 ---
Progress Note Date Seen: Oct 12, 2024 Medical Necessity Reason Pt with a Central, PICC or Fol: No Subjective Patient reports: Feels better Other Systems: going home Objective vital signs Vital Sign Date Time Temp Pulse Resp B/P (MAP) Pulse Ox O2 Delivery O2 Flow Rate FiO2 10/12/24 10:34 36.6 103 10/12/24 09:37 97/56 10/12/24 09:00 19 93 10/12/24 08:07 Nasal Cannula* 3 32 Total Intake and Output 10/11/24 10/11/24 10/12/24 15:00 23:00 07:00 Intake Total 720 ml 350 ml Output Total 750 ml 12 ml Balance -30 ml 338 ml medications Current Medications Medications Dose Ordered Sig/Anai Route Start Time Stop Time Status Last Admin Dose Admin Apixaban 5 mg BID PO 10/10/24 10:00 10/12/24 09:32 5 MG Patient Own Medication 1 tab Q8HR PRN PO 10/10/24 07:30 UNV Patient Own Medication 1 tab Q12HR PO 10/10/24 10:00 UNV Patient Own Medication 100 mg DAILY PO 10/10/24 10:00 UNV Patient Own Medication 1 tab DAILY PO 10/10/24 10:00 Patient Own Medication 200 mg HS PO 10/10/24 22:00 UNV Sodium Chloride 10 ml Q8HR IV 10/10/24 14:00 10/12/24 05:44 10 ML Acetaminophen/ Hydrocodone Bitart 1 tab Q4HP PRN PO 10/10/24 07:45 10/12/24 05:44 1 TAB Nitroglycerin 0.4 mg Q5MINP PRN SL 10/10/24 07:45 Hold Morphine Sulfate 2 mg Q30M PRN IV 10/10/24 07:45 Hydromorphone HCl 1 mg Q3HPRN PRN IV 10/10/24 07:45 10/12/24 00:15 1 MG Buspirone HCl 15 mg q8hprn PO 10/10/24 08:30 Albuterol 2.5 mg Q6HPRN PRN NEB 10/10/24 09:45 10/12/24 07:52 2.5 MG Ipratropium [place] 0.5 mg Q6HPRN PRN NEB 10/10/24 09:45 10/12/24 07:52 0.5 MG Furosemide 40 mg BIDD IV 10/10/24 18:00 10/12/24 05:44 40 MG Potassium Chloride 10 meq BID PO 10/10/24 22:00 10/11/24 21:14 10 MEQ Cefepime HCl 50 ml @ 12.5 mls/hr Q12HR IV 10/11/24 22:00 10/12/24 09:37 12.5 MLS/HR Carvedilol 12.5 mg BID PO 10/11/24 22:00 10/11/24 21:13 12.5 MG Examination: GENERAL:Abnormal, HEENT:Abnormal, LUNGS:Abnormal, CVS:Abnormal, ABDOMEN:Abnormal laboratory and microbiology Laboratory Tests 10/12/24 04:59 10/11/24 04:00 Test 10/12/24 04:59 Range/Units Serum Glucose 128 H 74-106 mg/dL Microbiology Date/Time Source Procedure Growth Status 10/10/24 18:40 Nose MRSA Screen - Final Complete Problem List/Assessment/Plan Problem List/Assessment/Plan postop ortho surgery hypercapneia obesity acute on chronic nyha class III HF ckd afib cont doac cont HF meds po lasix on dc outpt fu Plan discussed with: Patient Date of Service: Oct 12, 2024 Billing Provider: TARAN GREEN MD Common Visit Codes: NOT BILLABLE TARAN GREEN MD Oct 12, 2024 11:37
== END 2024-10-12 12:15 | disposition home health service (06) | DRG 483 ==
LOC: SUR 06:16 → OVERFLOW 07:31 → TELE 16:11 → ICU WEST 18:30 → TELE-CENTR 10-11 18:36
PROVIDERS: ADMIT Orthopaedic Surgery Adult Reconstructive Orthopaedic Surgery; ATTEND Orthopaedic Surgery Adult Reconstructive Orthopaedic Surgery
PROC: 0RRJ00Z Replacement of Right Shoulder Joint with Reverse Ball and Socket Synthetic Substitute, Open Approach (ICD-10-PCS; 2024-10-10)
PROC: 5A09357 Assistance with Respiratory Ventilation, Less than 24 Consecutive Hours, Continuous Positive Airway Pressure (ICD-10-PCS; principal; 2024-10-10 07:33)
DX: M75.101 Unspecified rotator cuff tear or rupture of right shoulder, not specified as traumatic (principal); J96.20 Acute and chronic respiratory failure, unspecified whether with hypoxia or hypercapnia; I48.20 Chronic atrial fibrillation, unspecified; I42.9 Cardiomyopathy, unspecified; I50.32 Chronic diastolic (congestive) heart failure; M12.811 Other specific arthropathies, not elsewhere classified, right shoulder; I34.0 Nonrheumatic mitral (valve) insufficiency; I25.10 Atherosclerotic heart disease of native coronary artery without angina pectoris; I27.20 Pulmonary hypertension, unspecified; N18.9 Chronic kidney disease, unspecified; E66.9 Obesity, unspecified; Z82.49 Family history of ischemic heart disease and other diseases of the circulatory system; Z95.810 Presence of automatic (implantable) cardiac defibrillator; Z68.38 Body mass index [BMI] 38.0-38.9, adult
CPT/HCPCS: 36415; 36600; 71045; 73020; 80048; 82805; 83735; 85025; 86850; 86900; 86901; 87081; 94640; 94660; 97163; A4565; G0378; J0131; J1885; J2003; J2250; J2405; J2704; J3490

== ENCOUNTER 2024-11-13 15:09 | Emergency (ER) | payer OTHER ==
[~2024-11-13] VITALS: Ht 182.9 cm; Wt 104.5 kg
[~2024-11-13 15:09] MED LIST changes: -LOSA-535 PO; -SACU1CAP2 PO; +SACU1TAB7 PO; -TADA5TAB16 PO
[2024-11-13 15:15] VITALS: BP 163/102; PULSE 91; RESP 18; O2SAT 96
--- NOTE | 2024-11-13 15:40 | ECG ---
[facility] Test Date: 2024-11-13 Test Time: 15:12:56 Pat Name: MIGUELITO WILLIS Department: ER Room: Gender: M [employer] Etcher: GV : 1950 Requested By: AIDA HELTON Order Number: [id number] Reading MD: Yosef Rodriguez Measurements Intervals Friona Rate: 98 P: 0 MN: 0 QRS: 142 QRSD: 190 T: 2 QT: 430 QTc: 550 Interpretive Statements Atrial fibrillation RBBB and LPFB Borderline ST depression, lateral leads Electronically Signed On 11-13-2024 16:12:43 PST by Yosef Rodriguez Please click the below link to view image of tracing.
== END 2024-11-13 17:35 | disposition left against medical advice (07) ==
LOC: EDBD 15:09 → EDUNIT# 15:09 → ER 15:09
DX: R51.9 Headache, unspecified (principal); R07.81 Pleurodynia; M54.2 Cervicalgia; M54.6 Pain in thoracic spine; Z53.21 Procedure and treatment not carried out due to patient leaving prior to being seen by health care provider
CPT/HCPCS: 93005

== ENCOUNTER 2024-11-14 08:03 | Day surgery (SDC) | payer OTHER ==
[~2024-11-14] VITALS: Ht 182.9 cm; Wt 112.5 kg
[2024-11-14] VITALS (14 sets, daily range): BP systolic 135–171; BP diastolic 87–98; PULSE 68–84; RESP 14–22; TEMP 98; O2SAT 93–99
[2024-11-14] MEDS ORDERED: MIDAZOLAM HCL 2MG/2ML 2ml VIAL (1mg/ml) IV ONE (09:00)
[2024-11-14] MEDS ORDERED: fentaNYL CITRATE 100 MCG/2 ML VL IV ONE (09:00)
[2024-11-14] MEDS ORDERED: LIDOCAINE VISCOUS 2% 15ML UD PO ONE (09:00)
[2024-11-14] MEDS ORDERED: diphenhdrAMINE HCL 50 MG/1 ML VL IV ONE (09:00)
[2024-11-14] MEDS ORDERED: ANGIOMAX 250 MG VIAL IV ONE (10:17)
[2024-11-14] MEDS ORDERED: VERAPAMIL 2.5MG/ML INJ 2ML VIAL IV ONE (10:17)
[2024-11-14] MEDS ORDERED: LIDOCAINE 2%HCL (LOCAL ANESTH.) INJ 20ML MDV ONE (10:18)
[2024-11-14] MEDS ORDERED: SODIUM CHL 0.9% 0 ML ONE (10:18)
[2024-11-14] MEDS ORDERED: IODIXANOL 320MG/ML 100ML BTL IV ONE (10:24)
[2024-11-14] MEDS ORDERED: HEPARIN SODIUM (PORCINE) 5000 UNITS/ML 1ML VIAL ONE (10:37)
--- NOTE | 2024-11-14 10:52 | DVHOP2 ---
Operative Report Operative Report CARDIAC MERCHANT PATROLLER PROCEDURE REPORT [place], [place] Date of Service: Sr. Merchandise Planner: Taran Green MD PROCEDURES PERFORMED: Coronary angiogram, left heart catheterization, conscious sedation administration and supervision, less than 15 minutes; fluoroscopy use and interpretation. PREOPERATIVE DIAGNOSES: mitral regurg workup POSTOP DIAGNOSIS: moderate non critical CAD DESCRIPTION OF PROCEDURE: The patient or appropriate family signed informed consent understanding the risks, benefits and alternatives of the procedure, they wished to proceed. The patient was brought to the cardiac lab assistant in n.p.o. state. The patient was prepped in a sterile fashion. Sedation was used per cardiac cath protocol. I administered 2 mL of 2% lidocaine to the left wrist. With an antegrade front wall puncture. I cannulated the rleft radial artery and placed a 6-[place] Glidesheath slender. Next, an intra-arterial spasmolytic was administered. Next, a - 6French JR4 and Jl3.5 and were used for coronary angiogram and LVEDP measurement and pressure pullback. At the completion of procedure, all guides and wires were removed, and there were no immediate complications. 4000 U of iv heparin given. FINDINGS: RCA: Moderate vessel off the right sinus of Valsalva, there is no severe flow limiting stenosis. 30% mid vessel stenosis . LEFT MAIN: Moderate size left main, it bifurcates into LAD and circumflex. CIRCUMFLEX: Moderate caliber vessel coming off the left main with no flow limiting stenosis. LAD: LAD is a moderate caliber vessel coming of the left main. 30-40% mid LAD tubular stenosis. LVEDP of 15 mmhg CONCLUSIONS: 1. mild to moderate CAD unchanged from 2023 PLAN: Aggressive risk factor modification and medical management for the patient. TARAN GREEN MD Nov 14, 2024 10:52
--- NOTE | 2024-11-14 11:10 | DVHOP2 ---
Operative Report Operative Report CARDIAC COST CONTROL ANALYST PROCEDURE REPORT [place], [place] Date of Service: 11/14/24 Kettle Hand: Taran Green MD PROCEDURES PERFORMED: trans esophageal echocardiogram, conscious sedation <15 mins, doppler assesment complete MARCUS, PREOPERATIVE DIAGNOSES: AFib , mitral regurg seveity POSTOP DIAGNOSIS: moderate MR DESCRIPTION OF PROCEDURE: The patient or appropriate family signed informed consent understanding the risks, benefits and alternatives of the procedure, they wished to proceed. The patient was brought to the cardiac lab pack chemist in n.p.o. state. the patient was given 15 ml of oral viscous lidocaine. the patient was placed in a left lateral decubitus position with bite block in mouth. NExt conscious sedation was administered per lab pack chemist protocol with _1_ mg of versed and __50_ mcg of fentanyl. Next a MARCUS probe was advanced to the mid esophagus with ease and multiple planar images obtained. At the completion of the procedure , probe was removed and there were no immediate complications. FINDINGS: Left Ventricle: dilated LV size, moderate to sever dysfunction, LVEF 30% Right Ventricle: RV enlarged moderately , normal function Left atrium: enlarged, smoke in LA Right atrium moderate nelarged Left atrial appendage: no thrombus noted, decreased velocity on PW monitoring Aortic valve: trileaflet valve, no severe or AI Mitral Valve: moderate eccentric MR towards the anterior leaflet, strucutrally no obvious deformities noted, no MS , mild to moderate MAC Tricuspid Valve: mild to moderate tricuspid regurgitaiton, no TS Pulmonic Valve: strucutrally normal, no severe PIor PS Interatrial septum: negative color flow for R to L shunt Ascending aorta: no severe plaquing CONCLUSIONS: would not recommend mitraclip eval at this time TARAN GREEN MD Nov 14, 2024 11:10
== END 2024-11-14 12:40 | disposition home or self-care (01) ==
LOC: CATH 08:03
PROVIDERS: ATTEND Internal Medicine
DX: I25.10 Atherosclerotic heart disease of native coronary artery without angina pectoris (principal); I48.91 Unspecified atrial fibrillation; I08.1 Rheumatic disorders of both mitral and tricuspid valves; I11.0 Hypertensive heart disease with heart failure; I50.30 Unspecified diastolic (congestive) heart failure; F41.9 Anxiety disorder, unspecified; Z79.01 Long term (current) use of anticoagulants; F17.200 Nicotine dependence, unspecified, uncomplicated; Z79.899 Other long term (current) drug therapy
CPT/HCPCS: 93312; 93458; C1769; C1894; J1644; J2250; J3010; Q9967; 99152; 99153